=== PATIENT | female | born 1940 | race Caucasian/White ===

== ENCOUNTER 2016-11-27 09:27 | Inpatient (IN) | payer MEDICARE, BC ==
[2016-11-28] MEDS ORDERED: Zolpidem 5 MG Tab GTUBE PRN (15:07)
[2016-11-28] MEDS: Albuterol/Ipratropium 3.0-0.5 MG/3 ML Neb Soln NEB SCH ×2 (15:37→21:02)
[2016-11-28] MEDS: Acetaminophen 325 MG Tab GTUBE PRN (17:10)
[2016-11-28] MEDS: Insulin Aspart 100 Units/ML 3 ML Pen SUBCUT SCH ×2 (17:21→21:20)
--- NOTE | 2016-11-28 18:06 | PCM.HP ---
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 She had it resected and had a trach placed in the nose removed and a closed up. He then was readmitted for pneumonia and was put on a ventilator for respiratory failure and the trach was placed back in. She had many secretions and was suctioned and got off the ventilator. She was in [place] before being sent here. While she was in the hospital she had hyponatremia and anemia that were stable. She had delirium history with Pablo Wilson Depakote. She had a swallowing video study that she failed therefore I started tube feedings. The hospitalist also told me that she is using hydrocodone twice a day for some neck pain around incision for trach but she has no infection. She also is very sensitive to insulin. She has no concerns today other than she would like some Benadryl for her G-tube site and some Tylenol when necessary for pain. She has history of smoking but has not smoked for 5 weeks and has a patch on currently. - Related Data Allergies/Adverse Reactions: Allergies Allergy/AdvReac Type Severity Reaction Status Date / Time No Known Allergies Allergy Verified 01/19/16 21:34 Home Medications: Home Meds Zolpidem [Ambien] 5 mg GTUBE BEDTIME PRN 03/12/14 [History] Acetaminophen [Tylenol] 650 mg GTUBE Q6H PRN 11/28/16 [History] Albuterol/Ipratropium [DuoNeb 3.0-0.5 MG/3 ML] 3 ml IH QID 11/28/16 [History] Aspirin 81 mg GTUBE DAILY 11/28/16 [History] Budesonide [Pulmicort] 0.5 mg IH BID 11/28/16 [History] Bumetanide 0.5 mg GTUBE DAILY 11/28/16 [History] Chlorhexidine Gluconate 0.12% [Peridex 0.12% Rinse] 15 ml PO BID 11/28/16 [ History] Cholecalciferol (Vitamin D3) [Vitamin D3] 1,000 unit GTUBE DAILY 11/28/16 [ History] Citalopram [Citalopram HBr] 20 mg GTUBE BEDTIME 11/28/16 [History] ClonazePAM [KlonoPIN] 0.25 mg GTUBE BID 11/28/16 [History] Famotidine [Pepcid] 20 mg GTUBE BID 11/28/16 [History] Hydrocodone/Acetaminophen [Alb[place] 5-325] 1 tab GTUBE BID PRN 11/28/16 [History] Insulin Aspart [NovoLOG] 1 - 5 units SUBCUT QIDACANDBED 11/28/16 [History] Insulin Glarg,Human.Rec.Analog [Lantus Solostar] 6 unit SUBCUT DAILY 11/28/16 [ History] Melatonin 6 mg GTUBE BEDTIME 11/28/16 [History] Metoprolol Tartrate [Lopressor] 12.5 mg GTUBE BID 11/28/16 [History] Nicotine [Habitrol] 14 mg TD DAILY 11/28/16 [History] OLANZapine [Olanzapine] 2.5 mg GTUBE BID 11/28/16 [History] Potassium Chloride 10 meq GTUBE DAILY 11/28/16 [History] Probiotic Yogurt 30 ml GTUBE BID 11/28/16 [History] Protein Supplement [Protein Powder] 15 gm GTUBE DAILY 11/28/16 [History] Sennosides [Senna] 8.8 mg GTUBE BID 11/28/16 [History] Thiamine HCl 100 mg GTUBE BID 11/28/16 [History] Valproic Acid [Depakene Syrup] 250 mg GTUBE BEDTIME 11/28/16 [History] Past Medical History HEENT History: Reports: Epistaxis, Impaired Vision Cardiovascular History: Reports: Heart Murmur, High Cholesterol, Hypertension Respiratory History: Reports: COPD Gastrointestinal History: Reports: Other (See Below) Other Gastrointestinal History: 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 CLEANING CUSTODIAN History: Reports: Other (See Below) Other OB/BYN History: hystoractomy Musculoskeletal History: Reports: Arthritis, Back Pain, Chronic, Other (See Below) Other Musculoskeletal History: hip pain Psychiatric History: Reports: Other (See Below) Other Psychiatric History: insomnia Endocrine/Metabolic History: Reports: Diabetes, Type II Oncologic (Cancer) History: Reports: Esophageal, Other (See Below) (Palate cancer) Other Oncologic History: jaw bone cancer - Infectious Disease History Infectious Disease History: Reports: C-Difficile, Extended Spectrum Beta- Lactamase (ESBL), Influenza, Measles, Mumps, Shingles - Past Surgical History HEENT Surgical History: Reports: None Cardiovascular Surgical History: Reports: None GI Surgical History: Reports: Esophageal Dilatation Other GI Surgeries/Procedures: every 3 month patient has to stratch esophageal muscle Endocrine Surgical History: Reports: None Musculoskeletal Surgical History: Reports: None Oncologic Surgical History: Reports: None Social & Family History - Tobacco Use Smoking Status *Q: Former Smoker Years of Tobacco use: 50 Packs/Tins Daily: 1 Used Tobacco, but Quit: Yes Month Tobacco Last Used: september 2016 Second Hand Smoke Exposure: No - Caffeine Use Caffeine Use: Reports: Coffee - Alcohol Use Days Per Week of Alcohol Use: 7 Number of Drinks Per Day: 1 Total Drinks Per Week: 7 - Recreational Drug Use Recreational Drug Use: No H&P Review of Systems - Review of Systems: Review Of Systems: See Below General: Reports: No Symptoms HEENT: Reports: Other (See history of present illness) Pulmonary: Reports: No Symptoms Cardiovascular: Reports: No Symptoms Gastrointestinal: Reports: No Symptoms Genitourinary: Reports: No Symptoms Musculoskeletal: Reports: No Symptoms Skin: Reports: No Symptoms Psychiatric: Reports: Other (History of delirium in the hospital but she denies now) Neurological: Reports: No Symptoms Hematologic/Lymphatic: Reports: Anemia Immunologic: Reports: No Symptoms Exam - Exam Exam: See Below - Vital Signs Vital Signs: Last Vital Signs Temp Pulse 68 11/28/16 15:39 Resp BP Pulse Ox 94 L 11/28/16 15:39 Weight: 97 lb 14.4 oz - Exam General: Alert, Oriented, Cooperative HEENT: Hearing Intact, Normal Nasal Septum, Posterior Pharynx Clear, Other ( Upper plate. Not able to see out surgery due to upper plate.) Neck: Supple, Other (Tracheostomy in place) Lungs: Clear to Auscultation, Normal Respiratory Effort Cardiovascular: Regular Rate, Regular Rhythm, Systolic Murmur GI/Abdominal Exam: Normal Bowel Sounds, Soft, Non-Tender, No Organomegaly, No Distention Back Exam: Normal Inspection, Full Range of Motion, NT Extremities: Normal Inspection, Normal Range of Motion, Non-Tender, No Pedal Edema, Normal Capillary Refill Skin: Warm, Dry, Intact Neurological: Normal Speech, Normal Tone Neuro Extensive - Mental Status: Alert, Oriented x3, Normal Mood/Affect, Normal Cognition Neuro Extensive - Motor, Sensory, Reflexes: Normal Gait Psychiatric: Alert, Normal Affect, Normal Mood - Patient Data Lab Results Last 24 hrs: Laboratory Results - last 24 hr 11/28/16 Range/Units 17:20 POC Glucose 105 (80-116) mg/dL *Q Meaningful Use (ADM) - VTE *Q VTE Criteria *Q: - Stroke *Q Stroke Criteria *Q: - AMI *Q AMI Criteria *Q: - Problem List (1) Cancer of palate Status: Acute Current Visit: Yes (2) Tracheostomy in place SNOMED Code(s): 354406645 ICD Code: Z93.0 - TRACHEOSTOMY STATUS Status: Acute Current Visit: Yes (3) COPD (chronic obstructive pulmonary disease) SNOMED Code(s): 31372176 ICD Code: J44.9 - CHRONIC OBSTRUCTIVE PULMONARY DISEASE, UNSPECIFIED Status : Acute Current Visit: Yes (4) Diabetes 1.5, managed as type 2 SNOMED Code(s): 525911900 ICD Code: E10.9 - TYPE 1 DIABETES MELLITUS WITHOUT COMPLICATIONS Status: Acute Current Visit: Yes (5) Delirium SNOMED Code(s): 5619356 ICD Code: R41.0 - DISORIENTATION, UNSPECIFIED Status: Acute Current Visit : Yes (6) Anemia SNOMED Code(s): 650828036 ICD Code: D64.9 - ANEMIA, UNSPECIFIED Status: Acute Current Visit: Yes (7) Acute hyponatremia SNOMED Code(s): 0869941 ICD Code: E87.1 - HYPO-OSMOLALITY AND HYPONATREMIA Status: Acute Current Visit: Yes (8) Palliative care status SNOMED Code(s): 176642815 ICD Code: Z51.5 - ENCOUNTER FOR PALLIATIVE CARE Status: Acute Current Visit: Yes Problem List Initiated/Reviewed/Updated: Yes Orders Last 24hrs: Active Orders 24 hr Category Date Time Status Admission Status [Patient Status] [ADT] Routine ADT 11/28/16 11:00 Active Airway Tracheostomy Assessment [RC] Q6H Care 11/28/16 14:00 Active Blood Glucose Check, Bedside [RC] QIDACANDBED Care 11/28/16 14:12 Active Oxygen Therapy [RC] PRN Care 11/28/16 14:12 Active RT Aerosol Therapy [RC] ASDIRECTED Care 11/28/16 15:39 Active Tube Feeding [Enteral Feedings] [RC] 0830,1230,1630, Care 11/28/16 14:47 Active 1930 Up With Assistance [RC] ASDIRECTED Care 11/28/16 14:12 Active VTE/DVT Education [RC] Per Unit Routine Care 11/28/16 14:12 Active Vital Signs [RC] DAILY Care 11/28/16 14:12 Active Consult to Spiritual Care [CONS] Routine Cons 11/28/16 14:12 Active OT Evaluation and Treatment [CONS] Routine Cons 11/28/16 14:12 Active PT Evaluation and Treatment [CONS] Routine Cons 11/28/16 14:12 Active Respiratory Care Assess and Treatment [CONS] Routine Cons 11/28/16 14:12 Active LOOM REPAIRER Evaluation and Treatment [CONS] Routine Cons 11/28/16 14:31 Active Nothing per Oral Now Diet [DIET] Diet 11/28/16 Lunch Active Acetaminophen [Tylenol] Med 11/28/16 15:07 Active 650 mg GTUBE Q6H PRN Acetaminophen/HYDROcodone [Alb[place] 325-5 MG] Med 11/28/16 15:07 Active 1 tab GTUBE BID PRN Albuterol/Ipratropium [DuoNeb 3.0-0.5 MG/3 ML] Med 11/28/16 16:00 Active 3 ml NEB QIDRT Aspirin Med 11/29/16 09:00 Active 81 mg GTUBE DAILY Budesonide [Pulmicort] Med 11/28/16 21:00 Active 0.5 mg NEB BIDRT Bumetanide [Bumex] Med 11/29/16 09:00 Active 0.5 mg GTUBE DAILY Chlorhexidine Gluconate 0.12% [Peridex 0.12% Rinse] Med 11/28/16 21:00 Active 15 ml PO BID Cholecalciferol (Vitamin D3) [Vitamin D3] Med 11/29/16 09:00 Active 1,000 units GTUBE DAILY Citalopram [Celexa] Med 11/28/16 21:00 Active 20 mg GTUBE BEDTIME ClonazePAM [KlonoPIN] Med 11/28/16 21:00 Active 0.25 mg GTUBE BID Famotidine [Pepcid] Med 11/28/16 21:00 Active 20 mg GTUBE BID Insulin Aspart [NovoLOG] Med 11/28/16 17:30 Active See Protocol SUBCUT QIDACANDBED Insulin Detemir [Levemir] Med 11/29/16 09:00 Active 6 unit SUBCUT DAILY Melatonin Med 11/28/16 21:00 Active 6 mg GTUBE BEDTIME Metoprolol Tartrate [Lopressor] Med 11/28/16 21:00 Active 12.5 mg GTUBE BID Nicotine [Habitrol] Med 11/29/16 09:00 Active 14 mg TRDERM DAILY OLANZapine [ZyPREXA] Med 11/28/16 21:00 Active 2.5 mg GTUBE BID Potassium Chloride [Potassium Chloride Solution] Med 11/29/16 09:00 Active 10 meq GTUBE DAILY Sennosides [Senexon] Med 11/28/16 21:00 Active 5 ml GTUBE BID Thiamine [Vitamin B-1] Med 11/29/16 09:00 Active 100 mg GTUBE DAILY Valproic Acid [Depakene Syrup] Med 11/28/16 21:00 Active 250 mg GTUBE BEDTIME Zolpidem [Ambien] Med 11/28/16 15:07 Active 5 mg GTUBE BEDTIME PRN Resuscitation Status Routine Resus Stat 11/28/16 14:12 Ordered Medication Orders Acetaminophen (Tylenol) 650 mg GTUBE Q6H PRN PRN Reason: MILD PAIN Last Admin: 11/28/16 17:10 Dose: 650 mg Hydrocodone Bitart/Acetaminophen ([place] 325-5 Mg) 1 tab GTUBE BID PRN PRN Reason: MODERATE-SEVERE PAIN Albuterol/Ipratropium (Duoneb 3.0-0.5 Mg/3 Ml) 3 ml NEB QIDRT WONG Last Admin: 11/28/16 15:37 Dose: 3 ml Aspirin (Aspirin) 81 mg GTUBE DAILY WONG Budesonide (Pulmicort) 0.5 mg NEB BIDRT WONG Bumetanide (Bumex) 0.5 mg GTUBE DAILY WONG Chlorhexidine Gluconate (Peridex 0.12% Rinse) 15 ml PO BID WONG Cholecalciferol (Vitamin D3) 1,000 units GTUBE DAILY [facility] Citalopram Hydrobromide (Celexa) 20 mg GTUBE BEDTIME WONG Clonazepam (Klonopin) 0.25 mg GTUBE BID WONG Famotidine (Pepcid) 20 mg GTUBE BID [facility] Insulin Aspart (Novolog) 0 unit SUBCUT QIDACANDBED WONG PRN Reason: Protocol Last Admin: 11/28/16 17:21 Dose: Not Given Insulin Detemir (Levemir) 6 unit SUBCUT DAILY WONG Melatonin (Melatonin) 6 mg GTUBE BEDTIME WONG Metoprolol Tartrate (Lopressor) 12.5 mg GTUBE BID WONG Nicotine (Habitrol) 14 mg TRDERM DAILY WONG Olanzapine (Zyprexa) 2.5 mg GTUBE BID WONG Potassium Chloride (Potassium Chloride Solution) 10 meq GTUBE DAILY WONG Senna (Senexon) 5 ml GTUBE BID WONG Thiamine HCl (Vitamin B-1) 100 mg GTUBE DAILY WONG Stop: 12/05/16 09:01 Valproic Acid (Depakene Syrup) 250 mg GTUBE BEDTIME WONG Zolpidem Tartrate (Ambien) 5 mg GTUBE BEDTIME PRN PRN Reason: Insomnia Assessment/Plan Comment:: 1. Patient is admitted to swing bed for PT/OT and trach care and suctioning. 2. Tube feedings per RD 3. They want the trach left in for at least 4 weeks. 4. Zyprexa and Depakote should be weaned within a 1-2 months. 5. Video swallowing study in 1-2 weeks. Patient thinks she has a set up in [place]. 6. Twice weekly labs Chem-12 and CBC. 7. Continue the medications she was transferred with. 8. At Benadryl and Tylenol PM per patient request. 9. Nothing by mouth 10. Progress directives she does not want CPR chest compressions but does want to be intubated.
[2016-11-28] MEDS ORDERED: diphenhydrAMINE 12.5 MG/5 ML Liquid 120 ML Bottle JTUBE PRN (18:08)
[2016-11-28] MEDS: Valproic Acid 250 MG/5 ML Syrup ML (473 ML Bottle) GTUBE SCH (21:00)
[2016-11-28] MEDS ORDERED: Bacitracin Oint 28.35 GM Tube TOP SCH (21:00)
[2016-11-28] MEDS: Citalopram 20 MG Tab GTUBE SCH (21:00)
[2016-11-28] MEDS ORDERED: [UNRECOGNIZED DRUG - OTHER] GTUBE SCH (21:00)
[2016-11-28] MEDS: Metoprolol Tartrate 25 MG Tab GTUBE SCH (21:03)
[2016-11-28] MEDS: Melatonin 3 MG Tab GTUBE SCH (21:06)
[2016-11-28] MEDS: Famotidine 20 MG Tab GTUBE SCH (21:06)
[2016-11-28] MEDS: Chlorhexidine Gluconate 0.12% Oral Rinse 473 ML Bottle PO SCH (21:06)
[2016-11-28] MEDS: Budesonide 0.5 MG/2 ML Neb Susp NEB SCH (21:07)
[2016-11-28] MEDS: Sennosides 8.8 MG/5 ML ML Syrup 237 ML Bottle GTUBE SCH (21:07)
[2016-11-28] MEDS: OLANZapine 2.5 MG Tab GTUBE SCH (21:08)
[2016-11-28] MEDS: ClonazePAM 0.5 MG Tab GTUBE SCH (21:17)
[2016-11-29] MEDS: Acetaminophen 325 MG Tab GTUBE PRN ×2 (00:37→12:47)
[2016-11-29] MEDS: Albuterol/Ipratropium 3.0-0.5 MG/3 ML Neb Soln NEB SCH ×5 (07:07→21:03)
[2016-11-29] MEDS: Budesonide 0.5 MG/2 ML Neb Susp NEB SCH ×2 (07:07→21:15)
[2016-11-29] MEDS: Insulin Aspart 100 Units/ML 3 ML Pen SUBCUT SCH ×4 (07:32→21:00)
[2016-11-29] MEDS: Bumetanide 2 MG Tab GTUBE SCH (08:14)
[2016-11-29] MEDS: Thiamine 100 MG Tab GTUBE SCH (08:14)
[2016-11-29] MEDS: Cholecalciferol (Vitamin D3) 1,000 Unit Tab GTUBE SCH (08:14)
[2016-11-29] MEDS: Aspirin 81 MG Tab.Chew GTUBE SCH (08:14)
[2016-11-29] MEDS: OLANZapine 2.5 MG Tab GTUBE SCH ×2 (08:15→21:16)
[2016-11-29] MEDS: Potassium Chloride 10% 20 MEQ/15 ML Soln 15 ML UD Cup GTUBE SCH (08:15)
[2016-11-29] MEDS: Nicotine 14 MG/24 Hr Patch TRDERM SCH (08:16)
[2016-11-29] MEDS: Sennosides 8.8 MG/5 ML ML Syrup 237 ML Bottle GTUBE SCH ×2 (08:19→21:15)
[2016-11-29] MEDS: Metoprolol Tartrate 25 MG Tab GTUBE SCH ×2 (08:19→21:10)
[2016-11-29] MEDS: ClonazePAM 0.5 MG Tab GTUBE SCH ×2 (08:23→21:10)
[2016-11-29] MEDS: Insulin Detemir 100 Units/ML 3 ML Pen SUBCUT SCH (08:27)
[2016-11-29] MEDS: Chlorhexidine Gluconate 0.12% Oral Rinse 473 ML Bottle PO SCH ×2 (09:00→21:14)
[2016-11-29] MEDS ORDERED: PROTEIN SUPPLEMENT 15 GM GTUBE SCH (09:00)
[2016-11-29] MEDS: Famotidine 20 MG Tab GTUBE SCH ×2 (09:00→21:14)
[2016-11-29] MEDS: Saccharomyces Boulardii (Probiotic) 250 MG Cap GTUBE SCH ×2 (12:47→21:09)
[2016-11-29] MEDS: Acetaminophen/HYDROcodone 325-5 MG Tab GTUBE PRN (20:26)
[2016-11-29] MEDS: Citalopram 20 MG Tab GTUBE SCH (21:08)
[2016-11-29] MEDS: Valproic Acid 250 MG/5 ML Syrup ML (473 ML Bottle) GTUBE SCH (21:08)
[2016-11-29] MEDS: Melatonin 3 MG Tab GTUBE SCH (21:13)
[2016-11-30] MEDS: Budesonide 0.5 MG/2 ML Neb Susp NEB SCH ×2 (07:10→21:06)
[2016-11-30] MEDS: Albuterol/Ipratropium 3.0-0.5 MG/3 ML Neb Soln NEB SCH ×4 (07:10→21:03)
[2016-11-30] MEDS: Insulin Aspart 100 Units/ML 3 ML Pen SUBCUT SCH ×4 (08:17→21:15)
[2016-11-30] MEDS: Famotidine 20 MG Tab GTUBE SCH ×2 (08:45→21:22)
[2016-11-30] MEDS: Cholecalciferol (Vitamin D3) 1,000 Unit Tab GTUBE SCH (08:45)
[2016-11-30] MEDS: Saccharomyces Boulardii (Probiotic) 250 MG Cap GTUBE SCH ×2 (08:45→21:08)
[2016-11-30] MEDS: OLANZapine 2.5 MG Tab GTUBE SCH ×2 (08:45→21:35)
[2016-11-30] MEDS: Thiamine 100 MG Tab GTUBE SCH (08:45)
[2016-11-30] MEDS: Sennosides 8.8 MG/5 ML ML Syrup 237 ML Bottle GTUBE SCH ×2 (08:46→21:28)
[2016-11-30] MEDS: Potassium Chloride 10% 20 MEQ/15 ML Soln 15 ML UD Cup GTUBE SCH (08:46)
[2016-11-30] MEDS: ClonazePAM 0.5 MG Tab GTUBE SCH ×2 (08:46→21:39)
[2016-11-30] MEDS: Nicotine 14 MG/24 Hr Patch TRDERM SCH (08:47)
[2016-11-30] MEDS: Bumetanide 2 MG Tab GTUBE SCH (08:48)
[2016-11-30] MEDS: Aspirin 81 MG Tab.Chew GTUBE SCH (08:54)
[2016-11-30] MEDS: Insulin Detemir 100 Units/ML 3 ML Pen SUBCUT SCH (09:12)
[2016-11-30] MEDS: Chlorhexidine Gluconate 0.12% Oral Rinse 473 ML Bottle PO SCH ×2 (09:15→21:30)
[2016-11-30] MEDS: Metoprolol Tartrate 25 MG Tab GTUBE SCH ×2 (09:16→21:12)
[2016-11-30] MEDS: Acetaminophen/HYDROcodone 325-5 MG Tab GTUBE PRN ×2 (13:36→17:30)
[2016-11-30] MEDS: Citalopram 20 MG Tab GTUBE SCH (21:17)
[2016-11-30] MEDS: Valproic Acid 250 MG/5 ML Syrup ML (473 ML Bottle) GTUBE SCH (21:18)
[2016-11-30] MEDS: Melatonin 3 MG Tab GTUBE SCH (21:21)
[2016-11-30] MEDS: diphenhydrAMINE 12.5 MG/5 ML Liquid 120 ML Bottle JTUBE PRN (22:05)
[2016-12-01] MEDS: Acetaminophen 325 MG Tab GTUBE PRN (03:42)
[2016-12-01] MEDS: Budesonide 0.5 MG/2 ML Neb Susp NEB SCH ×2 (07:08→20:18)
[2016-12-01] MEDS: Albuterol/Ipratropium 3.0-0.5 MG/3 ML Neb Soln NEB SCH ×4 (07:08→20:10)
[2016-12-01] MEDS: Insulin Aspart 100 Units/ML 3 ML Pen SUBCUT SCH ×5 (07:18→22:35)
[2016-12-01] MEDS: Saccharomyces Boulardii (Probiotic) 250 MG Cap GTUBE SCH ×2 (08:37→20:14)
[2016-12-01] MEDS: Nicotine 14 MG/24 Hr Patch TRDERM SCH (08:37)
[2016-12-01] MEDS: Potassium Chloride 10% 20 MEQ/15 ML Soln 15 ML UD Cup GTUBE SCH (08:37)
[2016-12-01] MEDS: Sennosides 8.8 MG/5 ML ML Syrup 237 ML Bottle GTUBE SCH ×2 (08:37→20:18)
[2016-12-01] MEDS: Metoprolol Tartrate 25 MG Tab GTUBE SCH ×2 (08:37→20:14)
[2016-12-01] MEDS: Bumetanide 2 MG Tab GTUBE SCH (08:38)
[2016-12-01] MEDS: OLANZapine 2.5 MG Tab GTUBE SCH ×2 (08:38→20:18)
[2016-12-01] MEDS: Aspirin 81 MG Tab.Chew GTUBE SCH (08:38)
[2016-12-01] MEDS: Cholecalciferol (Vitamin D3) 1,000 Unit Tab GTUBE SCH (08:38)
[2016-12-01] MEDS: Thiamine 100 MG Tab GTUBE SCH (08:38)
[2016-12-01] MEDS: ClonazePAM 0.5 MG Tab GTUBE SCH ×2 (08:38→20:25)
[2016-12-01] MEDS: Famotidine 20 MG Tab GTUBE SCH ×2 (08:39→20:17)
[2016-12-01] MEDS ORDERED: Lidocaine 2% 5 ML SDV INJECT ONE (09:00)
[2016-12-01] MEDS ORDERED: methylPREDNISolone Acetate 80 MG/ML SDV IM ONE (09:00)
[2016-12-01] MEDS: Chlorhexidine Gluconate 0.12% Oral Rinse 473 ML Bottle PO SCH ×2 (09:00→20:25)
[2016-12-01] MEDS: Insulin Detemir 100 Units/ML 3 ML Pen SUBCUT SCH (09:32)
--- NOTE | 2016-12-01 09:44 | PCM.PRNOTE ---
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 She requested a corticosteroid injection that she used to get from orthopedics. I looked up the chart and found to Dr. Colbert had injected the trochanteric bursa area in April. Patient accepted the risks and benefits of this procedure. I prepped the left buttock and to continue bursa identify the most tender area injected 80 mg of Depo-Medrol and 5 mL of 2% lidocaine. There are no complications. She tolerated the procedure fairly well.
[2016-12-01] MEDS: Acetaminophen/HYDROcodone 325-5 MG Tab GTUBE PRN ×2 (12:25→18:06)
[2016-12-01] MEDS: Valproic Acid 250 MG/5 ML Syrup ML (473 ML Bottle) GTUBE SCH (20:13)
[2016-12-01] MEDS: Citalopram 20 MG Tab GTUBE SCH (20:14)
[2016-12-01] MEDS: Melatonin 3 MG Tab GTUBE SCH (20:15)
[2016-12-01] MEDS: diphenhydrAMINE 12.5 MG/5 ML Liquid 120 ML Bottle JTUBE PRN (20:22)
[2016-12-02] MEDS: Acetaminophen 325 MG Tab GTUBE PRN ×3 (01:37→20:47)
[2016-12-02] MEDS: Acetaminophen/HYDROcodone 325-5 MG Tab GTUBE PRN ×2 (05:32→17:43)
[2016-12-02] MEDS: Albuterol/Ipratropium 3.0-0.5 MG/3 ML Neb Soln NEB SCH ×4 (07:06→20:33)
[2016-12-02] MEDS: Budesonide 0.5 MG/2 ML Neb Susp NEB SCH ×2 (07:06→20:44)
[2016-12-02] MEDS: Insulin Aspart 100 Units/ML 3 ML Pen SUBCUT SCH ×4 (07:59→20:42)
[2016-12-02] MEDS: Famotidine 20 MG Tab GTUBE SCH ×2 (08:00→20:43)
[2016-12-02] MEDS: Cholecalciferol (Vitamin D3) 1,000 Unit Tab GTUBE SCH (08:00)
[2016-12-02] MEDS: ClonazePAM 0.5 MG Tab GTUBE SCH ×2 (08:00→20:41)
[2016-12-02] MEDS: Thiamine 100 MG Tab GTUBE SCH (08:00)
[2016-12-02] MEDS: OLANZapine 2.5 MG Tab GTUBE SCH ×2 (08:01→20:46)
[2016-12-02] MEDS: Saccharomyces Boulardii (Probiotic) 250 MG Cap GTUBE SCH ×2 (08:02→20:33)
[2016-12-02] MEDS: Potassium Chloride 10% 20 MEQ/15 ML Soln 15 ML UD Cup GTUBE SCH (08:02)
[2016-12-02] MEDS: Sennosides 8.8 MG/5 ML ML Syrup 237 ML Bottle GTUBE SCH ×2 (08:02→20:46)
[2016-12-02] MEDS: Aspirin 81 MG Tab.Chew GTUBE SCH (08:02)
[2016-12-02] MEDS: Bumetanide 2 MG Tab GTUBE SCH (08:03)
[2016-12-02] MEDS: Nicotine 14 MG/24 Hr Patch TRDERM SCH (08:04)
[2016-12-02] MEDS: Chlorhexidine Gluconate 0.12% Oral Rinse 473 ML Bottle PO SCH ×2 (08:05→20:44)
[2016-12-02] MEDS: Insulin Detemir 100 Units/ML 3 ML Pen SUBCUT SCH (08:20)
[2016-12-02] MEDS: Metoprolol Tartrate 25 MG Tab GTUBE SCH ×2 (08:21→20:33)
[2016-12-02] MEDS: Lidocaine 5% 700 MG Patch TOP SCH (14:24)
[2016-12-02] MEDS: Citalopram 20 MG Tab GTUBE SCH (20:32)
[2016-12-02] MEDS: Valproic Acid 250 MG/5 ML Syrup ML (473 ML Bottle) GTUBE SCH (20:32)
[2016-12-02] MEDS: Melatonin 3 MG Tab GTUBE SCH (20:42)
[2016-12-02] MEDS: Remove Patch*LIDODERM TRDERM SCH (20:45)
[2016-12-02] MEDS: diphenhydrAMINE 12.5 MG/5 ML Liquid 120 ML Bottle JTUBE PRN (21:55)
[2016-12-03] MEDS: Acetaminophen 325 MG Tab GTUBE PRN ×3 (06:27→19:44)
[2016-12-03] MEDS: Insulin Aspart 100 Units/ML 3 ML Pen SUBCUT SCH ×4 (07:29→22:00)
[2016-12-03] MEDS: Budesonide 0.5 MG/2 ML Neb Susp NEB SCH ×2 (07:31→22:06)
[2016-12-03] MEDS: Albuterol/Ipratropium 3.0-0.5 MG/3 ML Neb Soln NEB SCH ×4 (07:31→21:43)
[2016-12-03] MEDS: Bumetanide 2 MG Tab GTUBE SCH (08:40)
[2016-12-03] MEDS: Aspirin 81 MG Tab.Chew GTUBE SCH (08:40)
[2016-12-03] MEDS: Saccharomyces Boulardii (Probiotic) 250 MG Cap GTUBE SCH ×2 (08:42→14:51)
[2016-12-03] MEDS: Nicotine 14 MG/24 Hr Patch TRDERM SCH (08:42)
[2016-12-03] MEDS: Insulin Detemir 100 Units/ML 3 ML Pen SUBCUT SCH (08:45)
[2016-12-03] MEDS: Metoprolol Tartrate 25 MG Tab GTUBE SCH ×2 (08:46→22:07)
[2016-12-03] MEDS: Famotidine 20 MG Tab GTUBE SCH ×2 (08:48→22:06)
[2016-12-03] MEDS: Potassium Chloride 10% 20 MEQ/15 ML Soln 15 ML UD Cup GTUBE SCH (08:48)
[2016-12-03] MEDS: Sennosides 8.8 MG/5 ML ML Syrup 237 ML Bottle GTUBE SCH ×2 (08:49→22:06)
[2016-12-03] MEDS: Thiamine 100 MG Tab GTUBE SCH (08:49)
[2016-12-03] MEDS: OLANZapine 2.5 MG Tab GTUBE SCH ×2 (08:50→22:04)
[2016-12-03] MEDS: Cholecalciferol (Vitamin D3) 1,000 Unit Tab GTUBE SCH (08:50)
[2016-12-03] MEDS: Chlorhexidine Gluconate 0.12% Oral Rinse 473 ML Bottle PO SCH ×2 (09:07→22:16)
[2016-12-03] MEDS: ClonazePAM 0.5 MG Tab GTUBE SCH ×2 (09:10→22:14)
[2016-12-03] MEDS: Lidocaine 5% 700 MG Patch TOP SCH (09:11)
[2016-12-03] MEDS: Acetaminophen/HYDROcodone 325-5 MG Tab GTUBE PRN ×2 (10:00→22:13)
[2016-12-03] MEDS ORDERED: diphenhydrAMINE 12.5 MG/5 ML Liquid ML (473 ML Bottle) JTUBE PRN (14:54)
[2016-12-03] MEDS: Valproic Acid 250 MG/5 ML Syrup ML (473 ML Bottle) GTUBE SCH (22:04)
[2016-12-03] MEDS: Melatonin 3 MG Tab GTUBE SCH (22:04)
[2016-12-03] MEDS: Citalopram 20 MG Tab GTUBE SCH (22:06)
[2016-12-03] MEDS: Remove Patch*LIDODERM TRDERM SCH (22:28)
[2016-12-04] MEDS: Budesonide 0.5 MG/2 ML Neb Susp NEB SCH ×2 (07:06→21:37)
[2016-12-04] MEDS: Albuterol/Ipratropium 3.0-0.5 MG/3 ML Neb Soln NEB SCH ×4 (07:06→20:05)
[2016-12-04] MEDS: Insulin Aspart 100 Units/ML 3 ML Pen SUBCUT SCH (07:41)
[2016-12-04] MEDS: Aspirin 81 MG Tab.Chew GTUBE SCH (09:21)
[2016-12-04] MEDS: Bumetanide 2 MG Tab GTUBE SCH (09:21)
[2016-12-04] MEDS: Insulin Detemir 100 Units/ML 3 ML Pen SUBCUT SCH (09:22)
[2016-12-04] MEDS: Nicotine 14 MG/24 Hr Patch TRDERM SCH (09:22)
[2016-12-04] MEDS: Lidocaine 5% 700 MG Patch TOP SCH (09:23)
[2016-12-04] MEDS: Metoprolol Tartrate 25 MG Tab GTUBE SCH ×2 (09:24→21:37)
[2016-12-04] MEDS: Famotidine 20 MG Tab GTUBE SCH ×2 (09:25→21:38)
[2016-12-04] MEDS: Potassium Chloride 10% 20 MEQ/15 ML Soln 15 ML UD Cup GTUBE SCH (09:26)
[2016-12-04] MEDS: Thiamine 100 MG Tab GTUBE SCH (09:26)
[2016-12-04] MEDS: Sennosides 8.8 MG/5 ML ML Syrup 237 ML Bottle GTUBE SCH ×2 (09:26→21:42)
[2016-12-04] MEDS: Cholecalciferol (Vitamin D3) 1,000 Unit Tab GTUBE SCH (09:27)
[2016-12-04] MEDS: OLANZapine 2.5 MG Tab GTUBE SCH ×2 (09:28→21:48)
[2016-12-04] MEDS: ClonazePAM 0.5 MG Tab GTUBE SCH ×2 (09:33→21:41)
[2016-12-04] MEDS: Chlorhexidine Gluconate 0.12% Oral Rinse 473 ML Bottle PO SCH ×2 (09:49→21:46)
[2016-12-04] MEDS: Saccharomyces Boulardii (Probiotic) 250 MG Cap GTUBE SCH ×2 (11:20→14:59)
[2016-12-04] MEDS: Acetaminophen/HYDROcodone 325-5 MG Tab GTUBE PRN ×2 (12:05→21:36)
--- NOTE | 2016-12-04 12:40 | PCM.SN ---
- Free Text/Narrative Note: Subjective-Dr. Mistry passive I will see the swing bed patient due to having a nosebleed. Since I'm over the hospital he wasn't. I agreed to do it. She states she's had a left nosebleed for about an hour. She is currently putting pressure on it and it's getting a little bit better. It's on the left side. [id number] active bleeding left side. Not able to see a site. Appears to be anterior. Gianna-left anterior nosebleed Plan-I took 2 2 x 2's and rolled him up and put copious amounts of Vaseline around them. Then I placed up in her nose. And then placed nose pincher on for pressure. I will leave it on for an hour and see how she's doing. Hold her aspirin for 5 days.
[2016-12-04] MEDS: Acetaminophen 325 MG Tab GTUBE PRN ×2 (14:11→20:04)
[2016-12-04] MEDS: Valproic Acid 250 MG/5 ML Syrup ML (473 ML Bottle) GTUBE SCH (21:37)
[2016-12-04] MEDS: Citalopram 20 MG Tab GTUBE SCH (21:37)
[2016-12-04] MEDS: Melatonin 3 MG Tab GTUBE SCH (21:38)
[2016-12-04] MEDS: Remove Patch*LIDODERM TRDERM SCH (21:47)
[2016-12-05] MEDS: Acetaminophen 325 MG Tab GTUBE PRN ×2 (05:18→10:29)
[2016-12-05] MEDS: Budesonide 0.5 MG/2 ML Neb Susp NEB SCH (07:05)
[2016-12-05] MEDS: Albuterol/Ipratropium 3.0-0.5 MG/3 ML Neb Soln NEB SCH ×2 (07:05→10:48)
[2016-12-05] MEDS: Nicotine 14 MG/24 Hr Patch TRDERM SCH (08:41)
[2016-12-05] MEDS: Bumetanide 2 MG Tab GTUBE SCH (08:41)
[2016-12-05] MEDS: Lidocaine 5% 700 MG Patch TOP SCH (08:43)
[2016-12-05] MEDS: Metoprolol Tartrate 25 MG Tab GTUBE SCH (08:47)
[2016-12-05] MEDS: ClonazePAM 0.5 MG Tab GTUBE SCH (08:47)
[2016-12-05] MEDS: Famotidine 20 MG Tab GTUBE SCH (08:48)
[2016-12-05] MEDS: Potassium Chloride 10% 20 MEQ/15 ML Soln 15 ML UD Cup GTUBE SCH (08:48)
[2016-12-05] MEDS: Chlorhexidine Gluconate 0.12% Oral Rinse 473 ML Bottle PO SCH (08:48)
[2016-12-05] MEDS: Cholecalciferol (Vitamin D3) 1,000 Unit Tab GTUBE SCH (08:49)
[2016-12-05] MEDS: Thiamine 100 MG Tab GTUBE SCH (08:49)
[2016-12-05] MEDS: Sennosides 8.8 MG/5 ML ML Syrup 237 ML Bottle GTUBE SCH (08:49)
[2016-12-05 08:50] VITALS: BP 153/79
[2016-12-05] MEDS: OLANZapine 2.5 MG Tab GTUBE SCH (08:50)
[2016-12-05] MEDS: Saccharomyces Boulardii (Probiotic) 250 MG Cap GTUBE SCH (10:32)
[2016-12-05] MEDS: Acetaminophen/HYDROcodone 325-5 MG Tab GTUBE PRN (12:37)
--- NOTE | 2016-12-06 02:22 | DISCH ---
DISCHARGE DATE: 12/05/2016 REASON FOR VISIT: For admission. DISCHARGE DIAGNOSES: 1. History of palate cancer. 2. History of hypoxic respiratory failure. 3. Healthcare-associated pneumonia. 4. Chronic obstructive pulmonary disease without exacerbation. 5. Diastolic congestive heart failure exacerbation. 6. Dysphagia. 7. Clostridium difficile diarrhea. 8. Anxiety, depression. 9. Diabetes. 10.Hypertension. 11.Anemia/mild hyponatremia. 12.Status post trach and PEG placement. 13.Tube feeding patient. PROCEDURES DURING THIS ADMISSION: 1. Trochanteric bursitis, glucocorticoid injection. 2. Nasal package due to epistaxis. CONSULTATIONS: PT and OT. BRIEF HISTORY AND HOSPITAL COURSE: This is a 76-year-old female with a complicated and complex medical history, admitted to [facility] last 3 months on and off for respiratory failure, pneumonia, intubation, and subsequent tracheostomy. She also had excessive respiratory secretions that required frequent suctioning and due to palate cancer and excision she needed a PEG tube as well for feeding. She has chronic medical problems as mentioned above in the discharge diagnosis and she came to us for physical strengthening, trach management, and tube feeding through the PEG tube. She did well by physical and occupational therapy. Nutrition was consulted as well and was on board. The patient was deemed stable enough for discharge to home with [facility] needing speech, respiratory, physical, and occupational therapy as well as medication management. During the hospital stay, she had complained of pain in the left hip for which Dr. Colbert had periodically done a glucocorticoid injection, I did this on Saturday. She also had bleeding from the nose and aspirin was stopped, and she was packed for an hour on the left nostril by Dr. Tafoya (I appreciate his help). DISCHARGE MEDICATIONS: Aspirin was held for 5 days due to the bleeding. She was discharged home on: 1. Acetaminophen p.r.n. 2. DuoNeb q.i.d. p.r.n. 3. Pulmicort b.i.d. by [facility]. 4. Bumex 0.5 mg daily. 5. Chlorhexidine gluconate. 6. Cholecalciferol 1000 units daily. 7. Celexa 20 mg a day. 8. Clonazepam 0.25 mg b.i.d. 9. Benadryl 25 mg q.6 hours p.r.n. 10.Pepcid 20 mg b.i.d. 11.Melatonin 6 mg at bedtime. 12.Lidocaine 700 mg topically daily. 13.Lopressor (instead of metoprolol) 12.5 mg b.i.d. 14.Olanzapine 2.5 mg daily. 15.Potassium chloride 10 mEq daily. 16.Saccharomyces 250 mg b.i.d., 1 patch. 17.Lidocaine 5% daily. 18.Sennosides 5 mL b.i.d. 19.Depakote 250 mg at bedtime. 20.Ambien 5 mg at bedtime. DISPOSITION: To home. FOLLOWUP: She has upcoming appointments at the on 12/11 and 01/09. She has an appointment for a PET scan next week and rfid manager next week as well. Please note that I spent more than 35 minutes in the discharge of the patient. /[id number] JANNY/REINALDO RAMIREZ
[2016-12-10] MEDS ORDERED: Aspirin 81 MG Tab.Chew GTUBE SCH (09:00)
== END 2016-12-05 13:05 | disposition home health service (06) | DRG 948 ==
LOC: FB.MS 11-28 13:41
PROVIDERS: ADMIT Family Medicine; ATTEND Family Medicine
PROC: 3E0U33Z Introduction of Anti-inflammatory into Joints, Percutaneous Approach (ICD-10-PCS; principal; 2016-12-01)
PROC: 3E0U3BZ Introduction of Anesthetic Agent into Joints, Percutaneous Approach (ICD-10-PCS; 2016-12-01)
PROC: 2Y41X5Z Packing of Nasal Region using Packing Material (ICD-10-PCS; 2016-12-04)
DX: R53.1 Weakness (principal); I50.30 Unspecified diastolic (congestive) heart failure; Z85.89 Personal history of malignant neoplasm of other organs and systems; E11.9 Type 2 diabetes mellitus without complications; J44.9 Chronic obstructive pulmonary disease, unspecified; I10 Essential (primary) hypertension; Z79.4 Long term (current) use of insulin; Z66 Do not resuscitate; Z87.891 Personal history of nicotine dependence; Z93.1 Gastrostomy status; M54.9 Dorsalgia, unspecified; G89.29 Other chronic pain; M70.62 Trochanteric bursitis, left hip; R04.0 Epistaxis; H54.7 Unspecified visual loss; Z79.82 Long term (current) use of aspirin; R13.10 Dysphagia, unspecified; F41.9 Anxiety disorder, unspecified; F32.9 Major depressive disorder, single episode, unspecified; Z93.0 Tracheostomy status; Z87.01 Personal history of pneumonia (recurrent)
CPT/HCPCS: 36415; 80048; 82962; 85025; 92526-GN; 92610-GN; 94150; 94640; 94640-76; 94664; 97161-GP; 97165-GO; A9270-GY; J1040; J7620; J7626

== ENCOUNTER 2016-12-08 13:39 | Emergency (ER) | payer MEDICARE, BC ==
[2016-12-08 13:48] VITALS: BP 133/55
[2016-12-08] MEDS ORDERED: HYDROmorphone 2 MG/ML SDV IM ONE (14:14)
[2016-12-08] MEDS ORDERED: Ondansetron 4 MG Tab.DIS PO ONE (14:15)
--- NOTE | 2016-12-10 12:07 | CR ---
INDICATION: Trauma left wrist, fell on desk. Question fracture rib with left- side pain. BILATERAL RIBS WITH CHEST: CHEST: PA view of the chest was obtained upright. A tracheostomy tube is noted in place, which is a new finding compared with a chest CT of 03/05/2014, which is the only comparison of the chest. Infiltration is noted at the right, and to a lesser extent left lung base; pneumonia is suspected, although contusion could be present. This should be correlated clinically. The possibility of a contusion at the left lung base of small size is difficult to exclude. However, the amount of infiltrate is minimal compared with the right, which extends into the infrahilar area on the right. The heart is enlarged. The aorta is tortuous and calcified. Dextroconvex scoliosis is noted at the thoracolumbar spine of mild degree. Multiple rib fractures posteriorly and posterolaterally on the left. These appear healed. Apparently, they were not present on the previous CT of 2014. On the chest x-ray, no definite acute fracture site is seen. A degree of demineralization may be present, however, which could be on the basis of osteoporosis and should be correlated clinically. IMPRESSION: 1. Bibasilar infiltration, much more prominent on the right than left in the middle lobe and possibly lower lobe on the right and lower lobe on the left. These findings may be partly on the basis of fibrosis, however, pneumonia, especially on the right, cannot be excluded. Other etiology such as contusion would also be a consideration. 2. ASHD with cardiomegaly. 3. Tracheostomy tube in place. 4. Possible osteoporosis with dextroconvex scoliosis thoracolumbar spine. BILATERAL RIBS: Four views of the ribs were obtained bilaterally. Demineralization is suggested, compatible with osteoporosis. A fracture through the distal shaft - metaphysis of the clavicle is noted, which is new compared with 2015. Its age is indeterminate, but could be acute. There are healed rib fractures at the 5th, 6th, 7th, and possibly 8th ribs laterally/posterolaterally. These fractures appear to be healed. However, at the 10th and 11th ribs posteriorly, there is difficulty in excluding fracture sites. This appearance may be secondary to overlying chondral calcification, however. No definite acute fracture site was identified in the ribs on the left. On the right, no displaced fracture sites were identified. IMPRESSION: 1. Possible acute fracture of the distal shaft of the clavicle. 2. Old rib fractures on the left. 3. No definite acute rib fractures. MTDD
--- NOTE | 2016-12-10 16:37 | ER ---
DATE SEEN: 12/08/2016 HISTORY OF PRESENT ILLNESS: Jh lives with her . 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 She has a PEG tube because she cannot swallow and has chronic cough. She has little congestion intermittently and has not changed. No recent fever. She fell 3 days ago and her left hip has mild tenderness. She has slept more and came in today because of left chest pain from chest trauma and chest discomfort. She denies any new shortness of breath. No fever. No increased dyspnea. No difficulties of sleeping at night. No PND. DIAGNOSES: Status post polypectomy, hypertensive heart disease, cancer of the palate, tracheostomy, chronic obstructive pulmonary disease, diabetes, delirium, palliative care. ALLERGIES: Bupropion, morphine, Bactrim. CURRENT MEDICINES: Acetaminophen, famotidine, clonazepam, citalopram, Peridex rinse for mouth, budesonide, DuoNeb, potassium chloride, olanzapine, nicotine, metoprolol tartrate, melatonin, Lidoderm, Ambien, valproic acid syrup, thiamine, senna. The patient complains of left ear discomfort. She has ear plug on which is quite prominent. PHYSICAL EXAMINATION: VITAL SIGNS: Blood pressure 133/55, heart rate 95 and regular, respirations 18, 92% saturation, 43.99 kilos with a BMI of 16.6 kg/m2. GENERAL: This very thin non-cachectic, but asthenic woman with minimal muscle mass complains of chest wall discomfort. She has audible moist rhonchi that are heard when she breathes and/or has a congested cough. Pharynx has no erythema. Has moderate dry mucosa and thickened mucus on the top of the tongue. NECK: No bruits in neck. No masses. Mild cervical adenopathy. LUNGS: Clear superiorly but the lower base has rhonchi. HEART: S1, S2. No murmur. ABDOMEN: Soft. No guarding. No abdominal discomfort. Left chest wall ribs 7, 8, 9 anterior axillary line and anterior midclavicular line are moderately tender to palpation. No crepitus. No step off. X-ray of the ribs and chest x-ray did not demonstrate a fracture. She has mild osteopenia of the bones. There are a few rales scattered and also chronic obstructive lung disease changes with fibrosis in the lungs without airspace opacity. ASSESSMENT: Left chest wall contusion with left traumatic chest wall costochondritis. Treat with Tylenol and ibuprofen, and for breakthrough pain, use Tylenol liquid with codeine 120/12.5 mg by mouth 1-2 teaspoons. Other diagnoses: Chronic obstructive lung disease, depression, gastroesophageal reflux disease, palate cancer, resection, tracheostomy, diabetes, anemia. PLAN: 1. The patient to follow up with doctor in a week if she has increasing shortness of breath. 2. She is to use incentive spirometer up to 10 times a day. 3. I have advised her that the rib belt is not the optimal therapeutic choice, but if she has no other alternatives, she can use it. I prefer her not to use it. 4. She will have pain on and off for a long time because the frequency of rib movement is great and the probability if she has a fracture, this healing will be over a long period of time. /[id number] ALPESH/REINALDO
== END 2016-12-08 16:00 | disposition home or self-care (01) ==
LOC: FB.ED 13:39
DX: S20.212A Contusion of left front wall of thorax, initial encounter (principal); M94.0 Chondrocostal junction syndrome [Tietze]; C05.9 Malignant neoplasm of palate, unspecified; I11.9 Hypertensive heart disease without heart failure; J44.9 Chronic obstructive pulmonary disease, unspecified; F32.9 Major depressive disorder, single episode, unspecified; K21.9 Gastro-esophageal reflux disease without esophagitis; E11.9 Type 2 diabetes mellitus without complications; D64.9 Anemia, unspecified; Z98.890 Other specified postprocedural states; Z88.5 Allergy status to narcotic agent; Z88.8 Allergy status to other drugs, medicaments and biological substances; Z93.0 Tracheostomy status; X58.XXXA Exposure to other specified factors, initial encounter
CPT/HCPCS: 71111; 99284; A9270; J1170; 96372; 99283

== ENCOUNTER 2016-12-09 11:27 | Emergency (ER) | payer MEDICARE, BC ==
[2016-12-09] MEDS ORDERED: traMADol 50 MG Tab PO ONE (12:36)
[2016-12-09] MEDS ORDERED: HYDROmorphone 2 MG/ML SDV IM ONE (13:38)
[2016-12-09] MEDS ORDERED: Ondansetron 4 MG Tab.DIS PO STA (13:39)
[2016-12-09] MEDS ORDERED: Albuterol/Ipratropium 3.0-0.5 MG/3 ML Neb Soln NEB ONE (15:06)
[2016-12-09 15:16] VITALS: BP 97/54
--- NOTE | 2016-12-10 12:12 | CR ---
INDICATION: Rales and rhonchi, question aspiration pneumonia. CHEST: PA and lateral views of the chest 12/09/2016, compared with 12/08/2016 PA view, were obtained and again revealed infiltration at the lung bases with increasing severity bilaterally, but especially more prominently on the right than left. Findings are most compatible with pneumonia, although contusion could also be present. The heart is again noted to be enlarged. Findings compatible with COPD and possibly osteoporosis are noted. The aorta is tortuous and calcified. IMPRESSION: 1. Increasing pleuroparenchymal change at the lung bases, especially on the right, compatible with pneumonia and pleuritis, although contusion could also be present. 2. ASHD with cardiomegaly. 3. Osteoporosis, dextroconvex scoliosis thoracolumbar spine. 4. Probable COPD. 5. Tracheostomy tube in place. MTDD
--- NOTE | 2016-12-11 15:14 | ER ---
DATE SEEN: 12/09/2016 HISTORY OF PRESENT ILLNESS: This is a 76-year-old woman who has recently had hard palate surgery with plastic surgical replacement of soft palate, was seen yesterday for left chest wall discomfort. She was dismissed on tramadol. She has pain and has come back. She has other diseases, chronic obstructive lung disease, depression, hypertension, smoked up until 08/2016, and a mitral valve murmur with systolic murmur that spread to the left axilla. She is also cachectic/cachexia/malnutrition. She has a feeding tube because she cannot swallow after the surgery of the soft palate. PAST MEDICAL HISTORY: 1. Tracheostomy. 2. Diabetes. 3. Hypertensive heart disease. 4. Status post polypectomy. MEDICATIONS: Current medicines are, 1. Budesonide-Pulmicort b.i.d. inhaler 0.5. 2. Albuterol DuoNeb q.i.d. 3. Acetaminophen-Tylenol. 4. Metoprolol-Lopressor 12.5 mg b.i.d. 5. Melatonin 6 mg at bedtime. 6. Lidoderm patch p.r.n. 7. Hydrocodone p.r.n. 8. Pepcid daily, feeding tube. 9. Clonazepam 0.25 mg p.r.n. 10.Citalopram 20 mg daily. 11.Vitamin D. 12.Chlorhexidine gluconate-Peridex oral rinse. 13.Bumetanide 0.5 mg daily. 14.Probiotic. 15.Potassium chloride. 16.Olanzapine 2.5 mg b.i.d. 17.Nicotine. 18.Zolpidem 5 mg at bedtime. 19.Valproic acid 250 mg daily. 20.Thiamine hydrochloride. 21.Senna p.r.n. 22.Protein supplement. 23.Tramadol. 24.Levofloxacin (latter was just added today). ALLERGIES: Bupropion, morphine, sulfamethoxazole, and trimethoprim. REVIEW OF SYSTEMS: CONSTITUTIONAL: Patient cannot give history, but daughter is here. She notes she is weak. She has not fallen. HEENT: Denies headaches nor is she lightheaded. CARDIOVASCULAR: She denies irregular heartbeat or palpitations or syncope, but she has chest discomfort mostly chest wall pain, left side ribs 10 and 11, sub-costochondritis. GASTROINTESTINAL: Denies gastrointestinal complaints of nausea, vomiting, or diarrhea. She has a PEG tube. She has been getting extra fluid, per recommendations yesterday, she had 250 mL of water yesterday. EXTREMITIES: Without pain or discomfort, but she has pain in her hips. She has had previous hip replacement and has had chronic increasing hip pain secondary to the breakdown and fragmentation of the aging prosthesis. She cannot walk because she has so much ache and pain. Because of this, she has experienced deconditioning. PHYSICAL EXAMINATION: VITAL SIGNS: Blood pressure 92/52, heart rate 84, respirations 18, oxygen saturation 92% on 2 L nasal cannula that came up to 93% after she had adequate suction of her lungs through the tracheostomy tube. She has audible rhonchi. She is very asthenic, weak and has a sad worried facies. HEENT: Examination with the tongue blade demonstrates the patient's artificial palate graft. There was a hole in it in the central portion, which is 3-4 mm long with 1-2 mm wide. NECK: No cervical adenopathy. No thyromegaly. No sentinel nodes in the supraclavicular region. LUNGS: Marked rhonchi and moderate rales. No wheezes. HEART: S1, S2. There is a murmur that transmits to the neck and also transmits to the left axilla and it is heard very loudly in the left carotid greater than the right carotid and left parasternal border (aortic murmur of aortic stenosis and mitral insufficiency). ABDOMEN: Soft. No guarding. No abdominal discomfort except there is discomfort near her PEG tube. There is soiling around the PEG tube dressing. Bowel sounds are present. EXTREMITIES: Without edema. No tenderness. Moderate muscle loss upper and lower extremities. Deep tendon reflexes hypoactive, but present in upper and lower extremities. Cranial nerves 2 through 12 intact except for she has compromise of her voice because she has the tracheostomy. Tracheostomy is noted and she is cleaned, but with multiple suctions, the trachea is cleared and the moderate rhonchi that was present relented. It is quite obvious when she tried to suction the tracheostomy, she put endotracheal tube in her mouth. She cannot perform suction without a mirror. We did replace the suction tube and the nurse then completed the suction. LABORATORY DATA: She has chest x-ray with moderate infiltrate right lower lobe and right lateral lobe, most likely aspiration pneumonia. This is new since two days ago. She has elevated troponin at 0.89. I did not do ABGs today. She has low sodium and low chloride, which was present in 2014 and was not repeated today. She did not have BMP done today. Troponin today is 0.89, none was done yesterday. She had a troponin done in March, which was normal. On review of her medical records, October 29 and , x2, x3 and October 31, troponins were 0.98, 0.65, 0.79, 0.87, 0.53. It is obvious she has had elevation of troponin tests before. The patient denies any chest pain, but she has moderate significant chest wall pain. On palpation of the left chest, she has moderate discomfort, ribs 9, 10, and 11, (sub- costochondritis with palpable reproducible pain). No abnormality at the xiphoid. ASSESSMENT: 1. Pneumonia, aspiration pneumonia probably secondary to feeding tube. 2. Under hydration. 3. Cachexia. 4. Palatal cancer with previous surgery with palate surgery, a graft placed and resultant visible fenestrated window in part of the graft (either complication or placed by design). 5. PEG tube in place to feed her. 6. Elevated troponin tests from October to now. It is indeterminate why she had elevated troponin tests from the normal troponin tests 2 days ago. She did not have one taken yesterday. 7. Etiology of her elevated troponin possibly elevated by other confounding variables:from pulmonary insufficiency, or possible congestive heart failure with associated chronic obstructive lung disease, or associated renal disease. She has had previous renal studies in March, normal creatinine with a GFR estimated greater than 60, so renal insufficiency probably it is not the cause of the troponin elevation. It is possible troponin is elevated by her cancer of the throat. PLAN: 1. Discussed with the family of either sending her to [place] because of the elevated troponin or sending her home or put her in the hospital. Family felt comfortable taking her home, did not feel a desire to send her to [place] or hospitalize her. 2. EKG demonstrated ST elevation: V3, 2 mm and is less than 1 mm in V2 with ST depression in V5 V6 - possible CA. Possible non stemi. The patient does not want to be admitted to the hospital. 3. Chronic obstructive lung disease, possible aspiration. 4. PEG tube, possible source of aspiration. 5. Cancer of the palate with previous surgery and also subsequent palatal graft. 6. Mild hypoxia which has cleared with adequate tracheal suctioning. 7. Inadequate home tracheal suction, needs to be trained on how to do it as home health care needs to get involved in her care. 8. Malnutrition/asthenia/cachexia secondary to cancer, perhaps needs increased caloric density to tube feedings and dietitian consult. 9. The patient needs help from home care to learn how to suction trachea. 10.Previous documented hypochloremia and hypokalemia. BMP was not performed at this time. 11.Depression. 12.Hypertension that is stable. 13.She did stop smoking August 2016, chronic obstructive lung disease with 50+ pack years. 14.Mitral valve insufficiency as well as aortic valve stenosis, murmurs and valvuloplasties. 15.More frequent nebulizer treatments. 16.More frequent suctioning of tracheostomy. 17.Exercise upper body due to deconditioning. 18.Follow-up with doctor in 3-5 days, earlier if worse. /[id number] ALPESH/REINALDO RAMIREZ
== END 2016-12-09 15:49 | disposition home or self-care (01) ==
LOC: FB.ED 11:27
DX: J69.0 Pneumonitis due to inhalation of food and vomit (principal); E10.9 Type 1 diabetes mellitus without complications; I11.0 Hypertensive heart disease with heart failure; C05.9 Malignant neoplasm of palate, unspecified; Z79.899 Other long term (current) drug therapy; Z88.5 Allergy status to narcotic agent; Z88.1 Allergy status to other antibiotic agents; Z88.8 Allergy status to other drugs, medicaments and biological substances
CPT/HCPCS: 36415; 36600; 71020; 82803; 84484; 93005; 94640; 96372; 99283; A9270; J1170; J7620; 99284

== ENCOUNTER 2016-12-10 15:04 | Observation (INO) | payer MEDICARE, BC ==
[2016-12-10] MEDS ORDERED: Albuterol/Ipratropium 3.0-0.5 MG/3 ML Neb Soln NEB ONE (15:49)
--- NOTE | 2016-12-10 15:56 | EDM.PDOC ---
ED HPI GENERAL MEDICAL PROBLEM - General Chief Complaint: Respiratory Problem Stated Complaint: LEFT RIB Time Seen by Provider: 12/10/16 15:40 Source of Information: Reports: Patient History Limitations: Reports: Other (Speaks in whispers due to tracheostomy) - History of Present Illness INITIAL COMMENTS - FREE TEXT/NARRATIVE: 76 yo female with a tracheostomy was seen here last Saturday and placed on Levaquin that she is still taking. No fever. Has had only one neb tx today, albuterol at 1 pm. Has been falling more lately and is interested in being in a [facility], but only if she can get a 3 day qualifying stay. Has not fallen since a fall that she was evaluated for this past Saturday. Quit smoking just 3 mos ago. Is SOB today more than usual. No chills. Her water was increased via her G-tube feedings as a result of assessing her as mildly dehydrated this past Saturday. Onset: Gradual Duration: Day(s):, Getting Worse Location: Reports: Chest Quality: Reports: Other (no new pain.) Severity: Mild Improves with: Reports: None Worsens with: Reports: None Context: Reports: Other (COPD with a trach) Associated Symptoms: Reports: Cough, Shortness of Breath Treatments PATENT DRAFTER: Reports: Other (see below) (Albuterol 3 hrs ago) left ribs Pain Score (Numeric/FACES): 4 - Related Data Allergies Allergy/AdvReac Type Severity Reaction Status Date / Time bupropion [From Wellbutrin] Allergy Itching Verified 12/10/16 16:05 morphine Allergy Nausea and Verified 12/10/16 16:05 Vomiting sulfamethoxazole Allergy Rash Verified 12/10/16 16:05 [From Bactrim] trimethoprim [From Bactrim] Allergy Rash Verified 12/10/16 16:05 Home Meds: Home Meds Zolpidem [Ambien] 5 mg GTUBE BEDTIME PRN 03/12/14 [History] Acetaminophen [Tylenol] 650 mg GTUBE Q6H PRN 11/28/16 [History] Budesonide [Pulmicort] 0.5 mg IH BID 11/28/16 [History] Bumetanide 0.5 mg GTUBE DAILY 11/28/16 [History] Chlorhexidine Gluconate 0.12% [Peridex 0.12% Rinse] 15 ml PO BID 11/28/16 [ History] Cholecalciferol (Vitamin D3) [Vitamin D3] 1,000 unit GTUBE DAILY 11/28/16 [ History] Citalopram [Citalopram HBr] 20 mg GTUBE BEDTIME 11/28/16 [History] ClonazePAM [KlonoPIN] 0.25 mg GTUBE BID 11/28/16 [History] Famotidine [Pepcid] 20 mg GTUBE BID 11/28/16 [History] Melatonin 6 mg GTUBE BEDTIME 11/28/16 [History] OLANZapine [Olanzapine] 2.5 mg GTUBE BID 11/28/16 [History] Potassium Chloride 10 meq GTUBE DAILY 11/28/16 [History] Probiotic Yogurt 30 ml GTUBE BID 11/28/16 [History] Protein Supplement [Protein Powder] 15 gm GTUBE DAILY 11/28/16 [History] Sennosides [Senna] 8.8 mg GTUBE BID 11/28/16 [History] Thiamine HCl 100 mg GTUBE BID 11/28/16 [History] Valproic Acid [Depakene Syrup] 250 mg GTUBE BEDTIME 11/28/16 [History] Lidocaine 5% [Lidoderm 5%] 700 mg TOP DAILY #30 patch 12/05/16 [Rx] Metoprolol Tartrate [Lopressor] 12.5 mg GTUBE BID #60 tablet 12/05/16 [Rx] Nicotine [Habitrol] 14 mg TD DAILY #60 patch 12/05/16 [Rx] Acetaminophen/Codeine [Tylenol/Codeine 120-12 MG/5 ML] 5 ml PO Q4H #6 oz [Rx] Levofloxacin [Levaquin] 250 mg PO Q24H #10 tablet 12/09/16 [Rx] traMADol HCl [Tramadol HCl] 25 gm MC Q6HR #30 powder 12/09/16 [Rx] Albuterol/Ipratropium [DuoNeb 3.0-0.5 MG/3 ML] 3 ml INH QID 12/10/16 [History] Past Medical History HEENT History: Reports: Epistaxis, Impaired Vision Cardiovascular History: Reports: Heart Murmur, High Cholesterol, Hypertension Respiratory History: Reports: COPD Gastrointestinal History: Reports: Other (See Below) Other Gastrointestinal History: 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 Genitourinary History: Reports: None JAVA DEVELOPER History: Reports: Other (See Below) Other OB/BYN History: hysteractomy Musculoskeletal History: Reports: Arthritis, Back Pain, Chronic, Other (See Below) Other Musculoskeletal History: hip pain Psychiatric History: Reports: Other (See Below) Other Psychiatric History: insomnia Endocrine/Metabolic History: Reports: Diabetes, Type II Oncologic (Cancer) History: Reports: Esophageal, Other (See Below) Other Oncologic History: jaw bone cancer - Infectious Disease History Infectious Disease History: Reports: C-Difficile, Extended Spectrum Beta- Lactamase (ESBL), Influenza, Measles, Mumps, Shingles - Past Surgical History HEENT Surgical History: Reports: None Cardiovascular Surgical History: Reports: None GI Surgical History: Reports: Esophageal Dilatation Other GI Surgeries/Procedures: every 3 month patient has to stretch esophageal muscle Endocrine Surgical History: Reports: None Musculoskeletal Surgical History: Reports: None Oncologic Surgical History: Reports: None Social & Family History - Family History Family Medical History: Noncontributory - Tobacco Use Smoking Status *Q: Former Smoker Years of Tobacco use: 60 Packs/Tins Daily: 1 Used Tobacco, but Quit: Yes Month Tobacco Last Used: years Second Hand Smoke Exposure: No - Caffeine Use Caffeine Use: Reports: None - Alcohol Use Days Per Week of Alcohol Use: 7 Number of Drinks Per Day: 1 Total Drinks Per Week: 7 - Recreational Drug Use Recreational Drug Use: No ED ROS GENERAL - Review of Systems Review Of Systems: See Below Constitutional: Reports: No Symptoms HEENT: Reports: No Symptoms Respiratory: Reports: Shortness of Breath, Wheezing, Cough Cardiovascular: Reports: No Symptoms Endocrine: Reports: No Symptoms GI/Abdominal: Reports: No Symptoms : Reports: No Symptoms Musculoskeletal: Reports: No Symptoms Skin: Reports: No Symptoms Neurological: Reports: No Symptoms ED EXAM, GENERAL - Physical Exam Exam: See Below Exam Limited By: No Limitations General Appearance: Alert, WD/WN, No Apparent Distress, Thin Eye Exam: Bilateral Eye: Normal Inspection Ears: Normal External Exam, Normal Canal, Hearing Grossly Normal Ear Exam: Bilateral Ear: Auricle Normal, Canal Normal Nose: Normal Inspection, Normal Mucosa, No Blood Throat/Mouth: Normal Inspection, Normal Lips, Normal Oropharynx, Normal Voice, No Airway Compromise Head: Atraumatic, Normocephalic Neck: Other (Tracheostomy present. ) Neurological: Alert, Oriented, CN II-XII Intact, No Motor/Sensory Deficits Psychiatric: Normal Affect, Normal Mood Skin Exam: Warm, Dry, Intact, Normal Color, No Rash Lymphatic: No Adenopathy Course - Vital Signs Text/Narrative:: RT suctioned her trach and her oxygen saturations improved to normal afterwards. Duoneb- Last Recorded V/S: Last Vital Signs Temp 36.6 C 12/10/16 16:35 Pulse 82 12/10/16 16:35 Resp 22 H 12/10/16 16:35 BP 94/54 L 12/10/16 16:35 Pulse Ox 95 12/10/16 16:35 - Orders/Labs/Meds Orders: Active Orders 24 hr Category Date Time Status RT Aerosol Therapy [RC] ASDIRECTED Care 12/10/16 15:49 Active Sodium Chloride 0.9% [Normal Saline] 1,000 ml Med 12/10/16 16:45 Active IV .BOLUS Medication Orders Sodium Chloride (Normal Saline) 1,000 mls @ 1,000 mls/hr IV .BOLUS ONE Stop: 12/10/16 17:44 Labs: Laboratory Tests 12/10/16 12/10/16 Range/Units 16:25 16:25 WBC 8.9 (4.5-12.0) X10-3/uL RBC 3.47 (3.23-5.20) x10(6)uL Hgb 11.0 L (11.5-15.5) g/dL Hct 32.4 (30.0-51.3) % MCV 93.3 (80-96) fL MCH 31.5 (27.7-33.6) pg MCHC 33.8 (32.2-35.4) g/dL RDW 16.2 H (11.5-15.5) % Plt Count 282 (125-369) X10(3)uL Sodium 133 L (135-145) mmol/L Potassium 4.5 (3.5-5.3) mmol/L Chloride 92 L D (100-110) mmol/L Carbon Dioxide 28 (23-29) mmol/L BUN 58 H D (8-23) mg/dL Creatinine 0.8 (0.6-1.3) mg/dL Est Cr Clr Drug Dosing TNP Estimated GFR (MDRD) > 60 (>60) BUN/Creatinine Ratio 72.5 H (9-20) Glucose 157 H (80-116) mg/dL Calcium 9.0 (8.6-10.2) mg/dL Meds: Medications Generic Name Dose Route Start Last Admin Trade Name Michaelq PRN Reason Stop Dose Admin Sodium Chloride 1,000 mls @ 1,000 mls/hr 12/10/16 16:45 Normal Saline IV 12/10/16 17:44 .BOLUS ONE Discontinued Medications Generic Name Dose Route Start Last Admin Trade Name Brandie PRN Reason Stop Dose Admin Albuterol/Ipratropium 3 ml 12/10/16 15:49 12/10/16 15:56 Duoneb 3.0-0.5 Mg/3 Ml NEB 12/10/16 15:50 3 ml ONETIME ONE Administration Tramadol HCl 50 mg 12/10/16 17:10 Ultram PO 12/10/16 17:11 ONETIME ONE Departure - Departure Time of Disposition: 17:21 Disposition: Refer to Observation Condition: Fair Clinical Impression: Weakness - Discharge Information Referrals: PCP,Unknown [Primary Care Provider] - Forms: ED Department Discharge - My Orders Last 24 Hours: My Active Orders 12/10/16 15:49 RT Aerosol Therapy [RC] ASDIRECTED 12/10/16 16:45 Sodium Chloride 0.9% [Normal Saline] 1,000 ml IV .BOLUS - Assessment/Plan Last 24 Hours: My Active Orders 12/10/16 15:49 RT Aerosol Therapy [RC] ASDIRECTED 12/10/16 16:45 Sodium Chloride 0.9% [Normal Saline] 1,000 ml IV .BOLUS
[2016-12-10] MEDS ORDERED: Sodium Chloride 0.9% 1,000 ML IV ONE (16:45)
[2016-12-10] MEDS ORDERED: traMADol 50 MG Tab PO ONE (17:10)
[2016-12-10] MEDS ORDERED: Polyethylene Glycol 3350 Powder 17 GM Packet GTUBE PRN (17:24)
[2016-12-10] MEDS ORDERED: Albuterol 0.083% 2.5 MG/3 ML Neb Soln NEB PRN (17:24)
[2016-12-10] MEDS ORDERED: Non-Formulary Medication 1 Each (Acetaminophen [Tylenol] 650 MG) GTUBE PRN (17:52)
[2016-12-10] MEDS ORDERED: ZOLPIDEM 5 MG GTUBE PRN (17:52)
[2016-12-10] MEDS ORDERED: LEVOFLOXACIN 250 MG PO SCH ×2 (18:00→21:00)
[2016-12-10] MEDS ORDERED: ACETAMINOPHEN PO SCH (18:00)
[2016-12-10] MEDS ORDERED: TRAMADOL HCL MC SCH (18:00)
[2016-12-10] MEDS ORDERED: CODEINE PO SCH (18:00)
[2016-12-10] MEDS: Sodium Chloride 0.9% 1,000 ML IV SCH (18:05)
[2016-12-10] MEDS ORDERED: Acetaminophen/Codeine 120-12 MG/5 ML Soln 5 ML UD Cup ONE (20:29)
[2016-12-10] MEDS: Acetaminophen/Codeine 120-12 MG/5 ML Soln 5 ML UD Cup PO PRN ×2 (20:37→20:45)
[2016-12-10] MEDS ORDERED: CHLORHEXIDINE GLUCONATE 0.12% PO SCH (21:00)
[2016-12-10] MEDS ORDERED: SENNOSIDES GTUBE SCH (21:00)
[2016-12-10] MEDS ORDERED: OLANZAPINE 2.5 MG GTUBE SCH (21:00)
[2016-12-10] MEDS ORDERED: THIAMINE HCL 100 MG GTUBE SCH (21:00)
[2016-12-10] MEDS ORDERED: MELATONIN 6 MG GTUBE SCH (21:00)
[2016-12-10] MEDS ORDERED: FAMOTIDINE 20 MG GTUBE SCH (21:00)
[2016-12-10] MEDS ORDERED: METOPROLOL TARTRATE 12.5 MG GTUBE SCH (21:00)
[2016-12-10] MEDS ORDERED: BUDESONIDE 0.5 MG IH SCH (21:00)
[2016-12-10] MEDS ORDERED: VALPROIC ACID 250 MG GTUBE SCH (21:00)
[2016-12-10] MEDS ORDERED: [UNRECOGNIZED DRUG - OTHER] GTUBE SCH (21:00)
[2016-12-10] MEDS ORDERED: Non-Formulary Medication 1 Each (Clonazepam [Klonopin] 0.25 MG) GTUBE SCH (21:00)
[2016-12-10] MEDS ORDERED: Non-Formulary Medication 1 Each (Citalopram [Citalopram Hbr] 20 MG) GTUBE SCH (21:00)
[2016-12-10] MEDS: traMADol 50 MG Tab PO PRN (21:48)
[2016-12-10] MEDS ORDERED: ZOLPIDEM 5 MG PO PRN (22:20)
[2016-12-10] MEDS: Albuterol/Ipratropium 3.0-0.5 MG/3 ML Neb Soln**OWN MED NEB SCH (23:38)
[2016-12-11] MEDS: traMADol 50 MG Tab PO PRN ×2 (03:22→09:06)
[2016-12-11] MEDS: Sodium Chloride 0.9% 1,000 ML IV SCH (07:32)
[2016-12-11] MEDS: Albuterol/Ipratropium 3.0-0.5 MG/3 ML Neb Soln**OWN MED NEB SCH (07:37)
[2016-12-11 08:04] VITALS: BP 118/54
[2016-12-11] MEDS ORDERED: Zolpidem 5 MG Tab GTUBE PRN (08:24)
[2016-12-11] MEDS ORDERED: LIDOCAINE TOP SCH (09:00)
[2016-12-11] MEDS ORDERED: NICOTINE 14 MG TD SCH (09:00)
[2016-12-11] MEDS ORDERED: Albuterol/Ipratropium 3.0-0.5 MG/3 ML Neb Soln*PTOM INH SCH (09:00)
[2016-12-11] MEDS ORDERED: Non-Formulary Medication 1 Each (Potassium Chloride [Potassium Chloride] 10 MEQ) GTUBE SCH (09:00)
[2016-12-11] MEDS ORDERED: Non-Formulary Medication 1 Each (Cholecalciferol (Vitamin D3) [Vitamin D3] 1,000 UNIT) GTUBE SCH (09:00)
[2016-12-11] MEDS ORDERED: BUMETANIDE 0.5 MG GTUBE SCH (09:00)
--- NOTE | 2016-12-11 10:24 | PN ---
DATE SEEN: 12/11/2016 SUBJECTIVE: Jh Esposito is a 76-year-old female, fragile, at risk for safety, was admitted for observation overnight. Feeling better this morning. She has an upcoming visit planned today with her ENT doctor in [place] and a PET scan. OBJECTIVE: HEENT: Speech was soft spoken. Tracheostomy intact. CHEST: Clear. HEART: Regular. ABDOMEN: Feeding tube in place. ASSESSMENT: Complicated disability postoperatively, soft palate surgery. Implications, tracheostomy and feeding tube. PLAN: Discharge. Recommendations, care, and close observation. Where she goes from there will be addressed accordingly. /[id number] ADONIS/REINALDO RAMIREZ
--- NOTE | 2016-12-11 13:51 | HP ---
ADMISSION DATE: 12/10/2016 REASON FOR VISIT: Complicated fatigue, weakness, and recurrent falls. HISTORY OF PRESENT ILLNESS: Jh Esposito is a 76-year-old, female, in attendance, was admitted from [facility] as an outpatient for observation care. She had a complicated soft palate malignancy dating back about four months ago, lengthy hospitalizations both at [place], [facility], and back at [place]. She was discharged just simply last 12/05/2016. She has had three ER visits in the meantime, complicated fall left chest wall injury, need for analgesics, progressive weakness, and intervention. She has a PET scan planned along with visit with ENT surgical technology instructor today. Feedings are through feeding tube only, some oral cares were provided, weakness and disability present. MEDICATIONS: Please see med recon list. ALLERGIES: Bupropion, morphine, sulfa with rash, and trimethoprim with rash. PAST MEDICAL HISTORY: Significant for multiple surgical procedures including about four months ago, soft palate surgery, reconstruction tracheostomy, and feeding tube. She had an initial hospital stay at [place], went to [facility], things went poorly, readmitted to [place], and lengthy stay and recent discharge. Other surgical procedures include a previous jaw surgery, uterine cancer with secondary radiation, a lung cancer spot was radiated, bilateral total hip arthroplasty, appendectomy, and wisdom tooth extraction. Ongoing medical problems include chronic COPD interventions, complicated insomnia, chronic constipation, but no other major problems. It should be noted that she was placed on Levaquin for pneumonia during her 2nd ER stay. SOCIAL HISTORY: , 52, 57 years. Two children; two daughters, five grand kids. Smoked until August of 2016, no alcohol consumption. No illicit drug use. FAMILY HISTORY: Negative for early heart disease, diabetes mellitus, or inheritable cancers. REVIEW OF SYSTEMS: GENERAL: Weak, fatigued, tired. HEENT: Eyes, sees well by report. Ears, sees well by report. Oropharynx, non feeding, tracheostomy. CHEST: Chronic cough, COPD. CARDIOVASCULAR: Denies chest pain, palpitations, or syncope. GI: Occasional constipation. No blood in stool. SKIN: No new lesions, eruptions, or moles. ENDOCRINE: No excessive thirst or urination. There is no allergic history of medications noted. ORTHOPEDIC: Generalized joint complaints. PHYSICAL EXAMINATION: VITAL SIGNS: 36.4, 102, 118/54, 75 is the mean pulse, 18 is the respirations, 94% on 1 L. GENERAL: Elderly, cooperative, conversant, cachetic, tracheostomy in place. HEENT: Funduscopic benign. Bright TMs. Clear nasal discharge. Mouth and oropharynx clear. Postoperative changes, soft palate. NECK: No adenopathy. Tracheostomy working. CHEST: Decreased breath sounds throughout all lung uribe. HEART: Regular without ectopy or murmur. ABDOMEN: Feeding tube in place, generalized tenderness. Surgical scar well healed. PELVIC AND RECTAL: Deferred. EXTREMITIES: Well perfused. SKIN: Without rash. Aging process. LABORATORY STUDIES: CBC; white count 8900, hemoglobin 11.0, platelets 282. Electrolytes; 133 sodium, 92 chloride, 58 BUN, creatinine 0.8. Glucose 157. GFR, greater than 60. ASSESSMENT: A 76-year-old female with complicated medical problems, presents with weakness, fatigue, chest wall injury, tracheostomy under observation, feeding tube under observation. PLAN: IV fluids, intervention and care. Close observation. Plan to discharge home tomorrow. /[id number] ADONIS/REINALDO
== END 2016-12-11 09:20 ==
LOC: FB.ED 15:04 → FB.MS 17:22
PROVIDERS: ADMIT Emergency Medicine; ATTEND Family Medicine
DX: J95.89 Other postprocedural complications and disorders of respiratory system, not elsewhere classified (principal); E11.9 Type 2 diabetes mellitus without complications; Z88.1 Allergy status to other antibiotic agents; Z88.2 Allergy status to sulfonamides; Z88.8 Allergy status to other drugs, medicaments and biological substances; Z93.0 Tracheostomy status; Z79.899 Other long term (current) drug therapy; Z98.890 Other specified postprocedural states; Z87.891 Personal history of nicotine dependence
CPT/HCPCS: 36415; 80048; 83735; 85027; 94640; 96360; 96361; 99285; A9270; G0378; J7040; J7620; 99217; 99218; 99284

== ENCOUNTER 2016-12-12 00:46 | Inpatient (IN) | payer MEDICARE, BC ==
[2016-12-12] MEDS: traMADol 50 MG Tab PO PRN ×2 (02:46→09:18)
[2016-12-12] MEDS ORDERED: Lidocaine 5% 700 MG Patch TOP SCH (09:00)
[2016-12-12] MEDS ORDERED: Potassium Chloride 10% 20 MEQ/15 ML Soln 15 ML UD Cup GTUBE PRN (09:25)
[2016-12-12] MEDS ORDERED: Zolpidem 5 MG Tab GTUBE PRN (09:25)
[2016-12-12] MEDS ORDERED: Nicotine 14 MG/24 Hr Patch TOP SCH (09:30)
[2016-12-12] MEDS ORDERED: Levofloxacin 250 MG Tab GTUBE SCH (09:30)
[2016-12-12] MEDS ORDERED: Polyethylene Glycol 3350 Powder 17 GM Packet GTUBE SCH (10:15)
[2016-12-12] MEDS: Acetaminophen/Codeine 300-30 MG Tab GTUBE PRN ×2 (13:30→22:12)
[2016-12-12] MEDS ORDERED: Bisacodyl 10 MG Supp RECTAL PRN (13:45)
[2016-12-12] MEDS: Albuterol/Ipratropium 3.0-0.5 MG/3 ML Neb Soln INH PRN (15:11)
--- NOTE | 2016-12-12 15:59 | HP ---
ADMISSION DATE: 12/12/2016 HISTORY OF PRESENT ILLNESS: Jh Esposito is a 76-year-old, female, re-admitted to swing bed after midnight on 12/12. She had an acute care, brief stay, was seen at [facility], discharge to the care of her family and readmitted to swing bed. Swing bed admission had been planned for on the morning of 12/12. Weakness and difficulty had persuaded. Has a history of complicated soft palate carcinoma, with lengthy multiple hospitalizations at [place], [facility], and swing bed here. She is being admitted to swing bed now for conversion and consideration for fpc care. Ability to proceed at home was a difficult setting. MEDICATIONS: Please see med recon list. ALLERGIES: Bupropion, morphine, sulfamethoxazole, and trimethoprim. PAST MEDICAL HISTORY: Significant for previous soft palate surgery with one positive node. She has had previous jaw cancer, total abdominal hysterectomy for uterine cancer and radiation therapy, appendectomy, and wisdom tooth extraction. Chronic illnesses noted. SOCIAL HISTORY: Lives with of 82. Long-term smoker, recently quit and no alcohol consumption. REVIEW OF SYSTEMS: Weak, fatigue, tired. Tracheostomy in place. Feeding tube in place. Bowels have been a little bit reluctant. Denies chest pain, true respiratory difficulty, blood in stool, blood in urine, and skin rash. PHYSICAL EXAMINATION: VITAL SIGNS: 45.63 kg, 36.5, 120/61, respirations 16, O2 saturation 90% on room air. GENERAL: Cachetic looking young lady. Speech was difficult due to tracheostomy. HEENT: Conjunctivae clear. Bright tympanic membranes. Clear nasal discharge. Mouth and oropharynx reveal postsurgical changes. NECK: Tracheostomy in good place. CHEST: Decreased breath sounds throughout all lung uribe. HEART: Regular without ectopy or murmur. ABDOMEN: Feeding tube in place. No hepatosplenomegaly. : Deferred. RECTAL: Deferred. EXTREMITIES: Perfused. LABORATORY STUDIES: Pending. ASSESSMENT: Readmission for weakness, fatigue, and difficulty home living situation. PLAN: Complementary care. Swing bed. Plan for fpc under consideration. /[id number] /REINALDO
[2016-12-12] MEDS: traMADol 50 MG Tab GTUBE PRN ×2 (16:43→20:37)
[2016-12-12] MEDS ORDERED: Polyethylene Glycol 3350 Powder 17 GM Packet PO SCH (19:15)
[2016-12-12] MEDS ORDERED: Citalopram 20 MG Tab GTUBE SCH (21:00)
[2016-12-12] MEDS ORDERED: Glycerin Adult 2.1 GM Supp RECTAL ONE (21:47)
[2016-12-12] MEDS ORDERED: Ondansetron 4 MG Tab.DIS PO PRN (21:47)
[2016-12-13] MEDS: Albuterol/Ipratropium 3.0-0.5 MG/3 ML Neb Soln INH PRN ×2 (01:51→06:46)
[2016-12-13] MEDS ORDERED: Lidocaine 2% Jelly 5 ML Urojet MUCMEM ONE (02:43)
[2016-12-13] MEDS ORDERED: Albuterol/Ipratropium 3.0-0.5 MG/3 ML Neb Soln NEB PRN (07:26)
[2016-12-13] MEDS ORDERED: Sodium Chloride 0.9% 1,000 ML IV SCH (07:30)
[2016-12-13] MEDS ORDERED: Morphine 2 MG/ML Syringe IVPUSH PRN (07:38)
[2016-12-13 07:59] VITALS: BP 90/58
[2016-12-13] MEDS ORDERED: metroNIDAZOLE/Normal Saline 500 MG in Premix Bag 1 BAG IV SCH (08:00)
[2016-12-13] MEDS ORDERED: Piperacillin/Tazobactam 4.5 GM in Sodium Chloride 0.9% 100 ML IV SCH (09:00)
--- NOTE | 2017-02-01 05:51 | DISCH ---
DISCHARGE DATE: 12/13/2016 HOSPITAL COURSE: Jh Esposito is a 76-year-old, female, readmitted to [facility] to swing bed. She had acute cares, brief stay. Seen at [facility]. Discharge care per family and readmitted to swing bed. Complicated fatigue and difficult home situation problematic. Social Service was involved along with nursing staff, transfer to skilled nursing care, long-term plans accordingly. DISCHARGE MEDICATIONS: Please see med recon list. /[id number] ADONIS/REINALDO
== END 2016-12-13 08:45 | disposition critical access hospital (66) | DRG 948 ==
LOC: FB.MS 00:46 → UNDODISIN 12-13 07:22
PROVIDERS: ADMIT Emergency Medicine; ATTEND Family Medicine
DX: R53.1 Weakness (principal); Z66 Do not resuscitate; C05.1 Malignant neoplasm of soft palate; Z87.891 Personal history of nicotine dependence; Z85.42 Personal history of malignant neoplasm of other parts of uterus; Z85.89 Personal history of malignant neoplasm of other organs and systems; Z92.3 Personal history of irradiation; Z93.0 Tracheostomy status; Z93.1 Gastrostomy status; R06.03 Acute respiratory distress; Z88.5 Allergy status to narcotic agent; Z88.8 Allergy status to other drugs, medicaments and biological substances; Z91.81 History of falling; Z79.82 Long term (current) use of aspirin; Z79.4 Long term (current) use of insulin; Z79.899 Other long term (current) drug therapy; E78.5 Hyperlipidemia, unspecified; I10 Essential (primary) hypertension; E11.9 Type 2 diabetes mellitus without complications; F41.8 Other specified anxiety disorders; I48.91 Unspecified atrial fibrillation
CPT/HCPCS: 36415; 80048; 85025; 85027; 87040; 94640; 97161-GP; A9270-GY; J2270; J7040; J7620

== ENCOUNTER 2016-12-13 07:22 | Inpatient (IN) | payer MEDICARE, BC ==
[2016-12-13] MEDS ORDERED: Sodium Chloride 0.9% 10 ML Syringe FLUSH PRN (08:45)
[2016-12-13] MEDS ORDERED: Zolpidem 5 MG Tab GTUBE PRN (08:49)
[2016-12-13] MEDS ORDERED: Acetaminophen/Codeine 300-30 MG Tab GTUBE PRN (08:49)
[2016-12-13] MEDS ORDERED: traMADol 50 MG Tab GTUBE PRN (08:49)
[2016-12-13] MEDS: metroNIDAZOLE/Normal Saline 500 MG in Premix Bag 1 BAG IV SCH ×2 (09:03→16:41)
[2016-12-13] MEDS ORDERED: Iopamidol 755 Mg/ML 75 ML Bottle IV ONE (09:59)
[2016-12-13] MEDS: Albuterol/Ipratropium 3.0-0.5 MG/3 ML Neb Soln INH PRN ×2 (10:17→14:39)
[2016-12-13] MEDS: Piperacillin/Tazobactam 4.5 GM in Sodium Chloride 0.9% 100 ML IV SCH ×3 (10:31→22:14)
[2016-12-13] MEDS: Enoxaparin 30 MG/0.3 ML Syringe SUBCUT SCH (10:38)
[2016-12-13] MEDS: Nicotine 14 MG/24 Hr Patch TOP SCH (10:42)
[2016-12-13] MEDS: Lidocaine 5% 700 MG Patch TOP SCH (10:44)
[2016-12-13] MEDS: Morphine 2 MG/ML Syringe IVPUSH PRN ×4 (10:52→23:00)
--- NOTE | 2016-12-13 11:52 | HP ---
ADMISSION DATE: 12/13/2016 HISTORY OF PRESENT ILLNESS: Jh Esposito is a 76-year-old, female, who has had a chace complicated course over the last several months' duration. She was found to have soft palate malignancy. Underwent a lengthy intervention, long-term stay at [place], [facility], then back to [facility], and here. Was readmitted recently, short-term stay, discharged, readmitted to swing bed. Ongoing care and future plans in place. During the course of the evening though, she had a couple episodes of vomiting, abdominal distention, absence of stools, and tachypnea and low-grade fever necessitating intervention, and transferred to acute care. Med recon list as noted. PAST MEDICAL HISTORY: Significant for previous soft palate surgery one positive node, previous jaw surgery, total abdominal hysterectomy for uterine cancer, radiation therapy, appendectomy, and wisdom tooth extraction. SOCIAL HISTORY: Lives with , daughters involved. Long-term smoker, just recently quit. No alcohol consumption. No illicit drug use. REVIEW OF SYSTEMS: Fatigue, tired, lethargic. PHYSICAL EXAMINATION: VITAL SIGNS: Stable and documented per exam. CONSTITUTIONAL: Appears much older. Moderate distress and hypoxia. HEENT: Funduscopic benign. Bright TMs. Clear nasal discharge. Mouth and oropharynx clear. NECK: Tracheostomy site intact. CHEST: Coarse rhonchi at both bases. Tachypnea at 40. HEART: Distant heart sounds. ABDOMEN: Distended without pathologic findings. With good bowel sounds. Feeding tube in place. EXTREMITIES: Well perfused. ASSESSMENT: Acute respiratory distress. Tracheostomy in place. PLAN: Medications, care, and treatment appropriate, antibiotic therapy for possible aspiration, diagnostic studies to be performed. Recent PET scan at [place] showed right lung mass, CT of the lung, chest x-ray upright . Complementary care and well being. /[id number] /REINALDO
[2016-12-13] MEDS: Ondansetron 4 MG/2 ML SDV IV PRN (12:56)
--- NOTE | 2016-12-13 13:45 | CT ---
INDICATION: Right lung mass on PET scan. CT CHEST, ABDOMEN, AND PELVIS WITH IV CONTRAST, NO ORAL CONTRAST: Spiral 2.5 mm axial sections were obtained through the chest, abdomen, and pelvis with 53 mL Isovue 370 at 1 mL/second, with sagittal and coronal reconstructions of the chest, abdomen, and pelvis. Examination is 12/13/2016 and is compared with 12/2016 CT PET scan from [place]. Findings were also compared with 11/06/2016 CT of the chest. Total exam DLP = 369.66 mGy-cm. CT CHEST: There is less prominence of the infiltrate in the right upper lobe, which may be on the basis of a resolving pneumonia. A minimal infiltrate in the left upper lobe also appears to be slightly less prominent. Some patchy infiltrate slightly inferiorly to the upper portion of the right upper lobe also appears less prominent than on the previous study of 11/06/2016. There is generally an overall improvement in the areas of infiltrate, except perhaps at the right lung base, where consolidation appears to be perhaps more prominent in the right lower lobe and the middle lobe as well, 12/11/2016 obtained from [place]. Followup of these findings will be necessary with repeat CTs. Aspiration of the small pleural effusion on the right may be helpful for diagnosis. There is again noted consolidating infiltration in both lower lobes , seen both in November and on 12/11/2016. These findings may all be on the basis of pneumonia with pleuritis. The possibility, however, of metastatic disease cannot be excluded without additional diagnostic workup, .including, as mentioned above, thoracentesis and possibly even biopsy, depending upon results of a thoracentesis. No pneumothorax was identified. Scattered patchy areas of infiltrate are noted throughout the upper lobes bilaterally with the small patchy areas of infiltrate perhaps slightly more numerous on the right. Again, the possibility of pneumonia possibly due to aspiration would be a consideration, although diffuse metastatic disease process cannot be excluded. Areas of increased uptake noted on a PET scan, apparently related to focal areas of infiltrate in the upper poles of the upper lobes bilaterally, are again noted and again cannot be determined to be cancer, due to their presence and similar appearance or slightly less prominent appearance, compared with 11/06/2016 examination. Pneumonia and possibly scarring are felt to be more likely with these two areas of abnormality. The numerous new patchy areas of infiltrate scattered about the lungs are indeterminate in nature. Metastatic disease versus aspiration versus extensive areas of patchy pneumonia. The amount of pleural fluid on the left appears to be significantly decreased compared with 11/06/2016 and also slightly decreased compared with 12/11/2016. The amount of fluid on the right overall also appears to be decreased compared with 11/06/2016 and appears similar to 12/11/2016. The amount of infiltration - consolidating infiltration at the right lung base and possibly the left lung base appears to be increased compared with 12/11/2016. Extensive calcification appears to be present in coronary arteries. The heart is enlarged. Pericardium appears normal. Mediastinal lymphadenopathy is again noted with some fairly enlarged lymph nodes. The possibility of metastatic disease and/or inflammatory change involving these nodes should be considered. IMPRESSION: Widespread areas of focal patchy infiltration are noted throughout the upper lobes with increasing infiltration suggested in the lower lobes also. The numerous tiny areas of focal infiltration that are present are noted to be , for the most part, new. Increased infiltration in both lower lobes - increased consolidating infiltration in both lower lobes is also present, all compared with 12/11/2016. Spiculated areas of density in the upper lobes near the apices bilaterally unchanged from 12/11/2016 but appear slightly less prominent than on 11/06/2016. These could represent areas of scarring and possibly superimposed pneumonia. Pneumonia and/or metastatic disease is difficult to exclude in these areas. Pneumonia is felt to be more likely, due to the significant rapid change, compared with 12/11/2016. Findings should be correlated clinically. CT ABDOMEN AND CT PELVIS: Examination of the abdomen and pelvis was obtained by CT as noted above and compared with 12/11/2016 and the lower portion of the chest CT from 11/06/2016. Extensive arterial calcifications are noted. The gallbladder appears somewhat distended but is less distended than on the previous study. No calculi were demonstrated. The wall may be slightly thickened, however. This raises question of cholecystitis but should be correlated clinically. There is abdominal and especially pelvic ascites. The etiology is indeterminate. However, there are numerous loops of severely distended small bowel into the pelvis with air fluid levels. The possibility of a process such as a severe paralytic ileus would be a consideration. Peritonitis cannot be excluded. No gross nodularity to strongly suggest peritoneal seeding is identified. The exact site of obstruction is not identified, although the terminal ileum appears to be relatively normal in caliber, raising question of location of mechanical obstruction as a possibility at the distalmost ileum. There is stool, however, in the colon, similar to two days ago. A gastric feeding tube is noted in place. A probable benign cystic structure is noted of small size at lower pole right kidney. A larger similar finding at the lower pole of the left kidney with additional small cysts and moderate sized cysts in both kidneys. The adrenal glands were unremarkable. The spleen had a normal appearance. A definite pancreatic mass is not identified; however, the common pancreatic duct was dilated to 5.6 mm in the body of the pancreas, and it can be followed to the head of the pancreas and duodenum without a definite obstructive process identified. An intraductal lesion would be a consideration. The common pancreatic duct was dilated to a greater extent in the head area, up to approximately 8.2 mm. the common bile duct measured approximately 5.9 mm, which is within normal range for this age group. No definite retroperitoneal mass was identified. Bilateral total hip arthroplasties are noted, producing a high degree of hard beam artifact, which limits detail in that portion of the lower pelvis. The urinary bladder appeared grossly normal. The uterus is not visualized, compatible with history of its removal. The appendix was not definitely visualized. Degenerative changes and disk disease are noted at the L2 through S1 levels with an anterior compression of indeterminate age at L5 of mild degree. IMPRESSION: 1. Dilated loops of fluid-filled small bowel through the entire small bowel, except the terminal ileum. The possibility of a mechanically obstructive process at that level cannot be excluded; however, paralytic ileus may be present - correlate clinically. There is stool in the colon. 2. Abdominal and pelvic ascites. No free air. Cannot exclude metastatic disease versus peritonitis versus other etiology. 3. Gastric feeding tube in place. 4. Extensive ASD. 5. Mild Multicystic disease of the kidneys. 6. No specific liver lesion or other finding to strongly suggest metastatic disease. 7. Dilated common pancreatic duct, etiology indeterminate. MRCP may be warranted, depending upon clinical correlation and lab value correlation. 8. Post hysterectomy. 9. Degenerative changes and disk disease L2 through S1. CT PELVIS: Examination of the pelvis was obtained by CT as noted above. Extensive arterial calcifications are noted. Pelvic ascites is noted. Dilated loops of small bowel with air fluid levels are noted down to the terminal ileum , raising question of either mechanically or paralytically obstructed bowel. The uterus is absent, compatible with history of its removal. Report was given in person to Dr. Barker at 1210 hours on 12/13/2016. Report faxed to Dr. Barker at 1340 hours on 12/13/2016. [facility]
[2016-12-13] MEDS ORDERED: Sodium Chloride 0.9% 1,000 ML IV ONE (14:45)
[2016-12-13] MEDS: Ketorolac 30 MG/ML SDV IVPUSH PRN ×2 (15:12→20:48)
--- NOTE | 2016-12-13 15:20 | CR ---
INDICATION: Abdominal distension. ABDOMEN: Three images of the abdomen in supine and upright projections were obtained and revealed a nasogastric tube with its tip at the distal esophagus. It would need to be advanced at least 15 cm for better positioning. There appears to be some gas in the distal rectum and in the colon in general with some stool. Bilateral THAs are noted. Hazy density in the pelvis may represent pelvic ascites. No other organomegaly or mass lesions were suggested. IMPRESSION: 1. Findings are felt to be most compatible with a paralytic ileus, although a distal small bowel obstruction at the level of the terminal ileum may be present. 2. Possible pelvic ascites. 3. ASD. 4. 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 5. Nasogastric tube needs to be advanced approximately 15 cm for better positioning. 6. Gastric feeding tube is noted in place. Report faxed to Dr. Barker on 12/13/2016 at 1525 hours. [facility]
[2016-12-13] MEDS ORDERED: Sodium Phosphate,Monobasic/Sodium Phosphate,Dibasic Enema 133 ML Bottle RECTAL ONE (18:19)
[2016-12-13] MEDS: Sodium Chloride 0.9% 1,000 ML IV SCH ×2 (18:35→23:36)
[2016-12-13] MEDS ORDERED: Citalopram 20 MG Tab GTUBE SCH (21:00)
--- NOTE | 2016-12-13 23:19 | CONS ---
DATE OF CONSULTATION: 12/13/2016 REASON FOR CONSULTATION: Abdominal distention as well as questionable lung mass, effusion on the right lower lung field. HISTORY OF PRESENT ILLNESS: This is a 76-year-old white female, who has had a rather complicated course over the summer. She underwent a resection of what appeared to be a soft palate tumor. Apparently, had long-term stay at both [facility], and then back to [facility] for swing bed, and then finally here to [place], was sent home last week. Apparently, she had a fall and returned to swing bed here for further care and strengthening. During her admission yesterday, she was noted to have some episodes of vomiting as well as abdominal distention. She reports her last bowel movement was 5 days ago. Denies any flatus, and in addition, she was noted to have what appeared to be a mass with effusion on her right lower lobe of her lung and effusion in that area and thoracentesis was recommended as part of a diagnostic workup. SOCIAL HISTORY: The patient lives with her . Has a history of smoking. Denies any alcohol use. PAST MEDICAL HISTORY: Significant for soft palate malignancy, previous jaw surgery. She has had a total abdominal hysterectomy for uterine cancer, history of radiation therapy, appendectomy, and wisdom tooth extraction. MEDICATIONS: At the time of evaluation include: 1. Acetaminophen with Codeine No.3 elixir 300/30. 2. DuoNeb inhaler q.i.d. 3. Lovenox 30 mg subcu daily. 4. Ketorolac 15 mg IV q.6 hours as needed for pain. 5. Lubriderm as needed. 6. Metronidazole 500 mg IV q.8 hours. 7. Morphine sulfate 2 mg IV q.2 hours as needed for respiratory distress. 8. Habitrol 12 mg topical patch. 9. Zofran 4 mg IV q.6 hours as needed for vomiting. 10.Piperacillin and tazobactam 4.5 g IV q.6 hours. REVIEW OF SYSTEMS: The patient has had some weight loss, fatigue, and some weakness, otherwise does have some respiratory issues as well as constipation. She has an indwelling Villalpando and apparently, has no neurologic issues. PHYSICAL EXAMINATION: VITAL SIGNS: Stable. She was afebrile. GENERAL: This is a well-developed, cachectic-appearing female appearing older than her stated age. HEENT: Grossly within normal limits. LUNGS: Occasional rhonchi on both bases with some dullness to percussion on the right side. HEART: Regular rate and rhythm. ABDOMEN: Distended with some tympany, but no rebound or guarding was noted. Feeding tube was in place. LABORATORY DATA: Laboratory evaluation demonstrates specific gravity in her urine of 1.005 with a small amount bilirubin and urobilinogen, and a small amount of leukocyte esterase. CT scan on her admission of the abdomen, chest, and pelvis demonstrate the following widespread patchy infiltrates in the upper lobes, tiny areas of focal infiltration were noted for the most part in both lower lobes, a spiculated area of density in the upper lobes near the apices, which is unchanged, pneumonia or metastatic disease is impossible to exclude, pneumonia is felt to be more likely due to the significant rapid change compared to her previous films. Abdomen and pelvis findings demonstrate dilated loops of fluid-filled small bowel throughout the entire small bowel. There is stool in the colon. Some pelvis and abdominal ascites as noted. G tube is in place. She was noted to have some atherosclerotic disease as well as multiple cysts in the kidney. There is a slight dilatation of the common pancreatic duct and she has some degenerative joint changes. ASSESSMENT AND PLAN: Abdominal distention appears to be more likely due to an ileus rather than an overt surgical condition at this point. Still has a fair amount of stool on her right side cell, so I am recommending an enema to see if we can get her bowels to move. With the effusion on the right, there is a recommendation from her PET scan to consider thoracentesis. We will set this up for tomorrow and hold her Lovenox tomorrow morning. This will require an ultrasound guidance. /[id number] /BRUECL
[2016-12-14] MEDS: metroNIDAZOLE/Normal Saline 500 MG in Premix Bag 1 BAG IV SCH ×3 (01:24→17:00)
[2016-12-14] MEDS: Morphine 2 MG/ML Syringe IVPUSH PRN ×3 (01:32→16:30)
[2016-12-14] MEDS ORDERED: Lidocaine 1% 30 ML SDV INJECT STA (02:20)
[2016-12-14] MEDS ORDERED: Lidocaine 2% Jelly 5 ML Urojet ONE (02:21)
[2016-12-14] MEDS: Piperacillin/Tazobactam 4.5 GM in Sodium Chloride 0.9% 100 ML IV SCH ×4 (03:38→21:56)
[2016-12-14] MEDS: Ketorolac 30 MG/ML SDV IVPUSH PRN ×2 (03:52→12:13)
[2016-12-14] MEDS: Albuterol/Ipratropium 3.0-0.5 MG/3 ML Neb Soln INH PRN ×3 (07:35→18:47)
[2016-12-14] MEDS: Nicotine 14 MG/24 Hr Patch TOP SCH ×2 (08:59→09:03)
--- NOTE | 2016-12-14 09:02 | PN ---
DATE SEEN: 12/14/2016 SUBJECTIVE: Jh Esposito is a 76-year-old female with a complicated clinical course over the last 4 months' duration. A lengthy stay in [place] post-soft palate carcinoma surgery; recurrent ER visits, interventions, and care. Switched from swing bed yesterday with abdominal pain, repetitive vomiting, abdominal distention, and hypotension. Workup in progress. RADIOGRAPHIC STUDIES: PET scan done in [place], followup CT revealed suspicion for some lesions in the right lower lung. Had been seen by Dr. Roberson, Surgery, who did an evaluation of her belly pain, felt to be stable. Fleet Enema given with some benefit-decreasing distention. Has a planned thoracentesis under ultrasound guidance by Dr. Roberson later today. Villalpando catheter was placed due to disability. Feeling better in terms of her respiratory well-being. Laboratory studies are noted. OBJECTIVE: VITAL SIGNS: Much better; Temperature 36.3, pulse 102, blood pressure 105/56, respirations 22, oxygen saturations 99% on O2. General: Speech was limited due to tracheostomy. CHEST: Diffuse wheeze and coarse rhonchi. Distant heart sounds. ABDOMEN: Benign, markedly distended. Feeding tube in place. ASSESSMENT: 1. Paralytic ileus, no signs of a mechanical obstruction. 2. Complicated underlying respiratory lung disease. 3. Soft palate surgery, postoperative. PLAN: She removed her NG tube. Appears to be comfortable. We will do IV fluids, continue intervention, and start feedings when Dr. Roberson feels it is appropriate. /[id number] ADONIS/REINALDO
[2016-12-14] MEDS: Lidocaine 5% 700 MG Patch TOP SCH (09:05)
[2016-12-14] MEDS ORDERED: Acetaminophen/Codeine 120-12 MG/5 ML Soln 5 ML UD Cup PO PRN (09:06)
[2016-12-14] MEDS: Enoxaparin 30 MG/0.3 ML Syringe SUBCUT SCH (09:10)
[2016-12-14] MEDS: Sodium Chloride 0.9% 1,000 ML IV SCH (09:14)
--- NOTE | 2016-12-14 11:09 | PCM.CONSN ---
- General Info Date of Service: 12/14/16 - Review of Systems Pulmonary: Reports: Shortness of Breath Cardiovascular: Reports: Other (tachycardic ) Gastrointestinal: Reports: Constipation - Patient Data Vitals - Most Recent: Last Vital Signs Temp 36.2 C 12/14/16 07:15 Pulse 126 H 12/14/16 07:15 Resp 28 H 12/14/16 07:15 BP 106/58 L 12/14/16 07:15 Pulse Ox 97 12/14/16 07:15 Weight - Most Recent: 46.323 kg I&O - Last 24 Hours: Intake & Output 12/13/16 12/14/16 12/14/16 22:59 06:59 14:59 Intake Total 300 2443 364 Output Total 300 Balance 300 2143 364 Lab Results Last 24 Hours: Laboratory Results - last 24 hr 12/13/16 Range/Units 17:00 Urine Color Yellow (YELLOW) Urine Appearance Clear (CLEAR) Urine pH 5.0 (5.0-6.5) Ur Specific [place] 1.005 L (1.010-1.025) Urine Protein Trace (NEGATIVE) mg/dL Urine Glucose (UA) Normal (NEGATIVE) mg/dL Urine Ketones Negative (NEGATIVE) mg/dL Urine Occult Blood Negative (NEGATIVE) Urine Nitrite Negative (NEGATIVE) Urine Bilirubin Small H (NEGATIVE) Urine Urobilinogen 1 H (NEGATIVE) mg/dL Ur Leukocyte Esterase Small H (NEGATIVE) Urine RBC 0-5 (0) Urine WBC 0-5 (0) Ur Squamous Epith Cells Occasional (NS,R,O) Urine Bacteria Rare H (NS) Med Orders - Current: Current Medications Acetaminophen/Codeine Phosphate (Tylenol/Codeine 120-12 Mg/5 Ml) 12.5 ml PO TID PRN PRN Reason: PAIN Albuterol/Ipratropium (Duoneb 3.0-0.5 Mg/3 Ml) 3 ml INH QID PRN PRN Reason: BREATHING Last Admin: 12/14/16 07:35 Dose: 3 ml Enoxaparin Sodium (Lovenox) 30 mg SUBCUT DAILY [facility] Last Admin: 12/14/16 09:10 Dose: 30 mg Metronidazole 500 mg/ Premix 100 mls @ 100 mls/hr IV Q8H [facility] Last Admin: 12/14/16 09:12 Dose: 100 mls/hr Piperacillin Sod/Tazobactam (Sod 4.5 gm/ Sodium Chloride) 100 mls @ 200 mls/hr IV Q6H [facility] Last Admin: 12/14/16 03:38 Dose: 200 mls/hr Sodium Chloride (Normal Saline) 1,000 mls @ 100 mls/hr IV ASDIRECTED [facility] Last Admin: 12/14/16 09:14 Dose: 100 mls/hr Ketorolac Tromethamine (Toradol) 15 mg IVPUSH Q6H PRN PRN Reason: abd pain Stop: 12/18/16 12:40 Last Admin: 12/14/16 03:52 Dose: 15 mg Lidocaine (Lidoderm 5%) 700 mg TOP DAILY [facility] Last Admin: 12/14/16 09:05 Dose: 700 mg Miscellaneous Information (Remove Patch) 1 ea TRDERM BEDTIME [facility] Last Admin: 12/13/16 20:00 Dose: 1 ea Morphine Sulfate (Morphine) 2 mg IVPUSH Q2H PRN PRN Reason: respiratory distress Last Admin: 12/14/16 07:13 Dose: 2 mg Nicotine (Habitrol) 14 mg TOP DAILY [facility] Last Admin: 12/14/16 09:03 Dose: 14 mg Ondansetron HCl (Zofran) 4 mg IV Q6H PRN PRN Reason: Nausea/Vomiting Last Admin: 12/13/16 12:56 Dose: 4 mg Sodium Chloride (Saline Flush) 10 ml FLUSH ASDIRECTED PRN PRN Reason: Keep Vein Open Discontinued Medications Acetaminophen/Codeine Phosphate (Tylenol With Codeine No.3 300mg/30mg) 1 tab GTUBE TID PRN PRN Reason: Pain Last Admin: 12/14/16 08:49 Dose: 1 tab Citalopram Hydrobromide (Celexa) 20 mg GTUBE BEDTIME [facility] Sodium Chloride (Normal Saline) 1,000 mls @ 500 mls/hr IV .BOLUS ONE Stop: 12/13/16 16:44 Last Admin: 12/13/16 16:11 Dose: 500 mls/hr Iopamidol (Isovue-370 (76%)) 75 ml IV ASDIRECTED ONE Stop: 12/13/16 10:00 Last Admin: 12/13/16 11:06 Dose: 53 ml Lidocaine HCl (Xylocaine 2% Jelly) Confirm Administered Dose 5 ml .ROUTE .STK- MED ONE Stop: 12/14/16 02:22 Last Admin: 12/14/16 03:25 Dose: 5 ml Sodium Biphosphate/Sodium Phosphate (Fleet Enema) 133 ml RECTAL ONETIME ONE Stop: 12/13/16 18:20 Last Admin: 12/13/16 19:55 Dose: 133 ml Tramadol HCl (Ultram) 50 mg GTUBE Q4H PRN PRN Reason: Pain Zolpidem Tartrate (Ambien) 5 mg GTUBE BEDTIME PRN PRN Reason: Insomnia - Exam General: Alert Lungs: Decreased Breath Sounds Cardiovascular: Regular Rate GI/Abdominal Exam: Normal Bowel Sounds, Soft, Non-Tender Consult PN Assessment/Plan Procedures: Procedures AIRWAY INHALATION TREATMENT (12/09/16) ASSAY OF CREATININE (09/15/14) ASSAY OF TROPONIN QUANT (12/09/16) BLOOD GASES ANY COMBINATION (12/09/16) CHEST X-RAY 2VW FRONTAL&LATL (12/09/16) COLONOSCOPY AND BIOPSY (03/15/14) COLONOSCOPY W/LESION REMOVAL (03/15/14) COMPLETE CBC W/AUTO DIFF WBC (03/16/14) COMPREHEN METABOLIC PANEL (03/16/14) CT ABD & PELV 1/> REGNS (09/15/14) CT SOFT TISSUE NECK W/DYE (06/15/16) CT THORAX W/DYE (03/05/14) ELECTROCARDIOGRAM TRACING (12/09/16) EMERGENCY DEPT VISIT (12/09/16) EMERGENCY DEPT VISIT (12/08/16) EMERGENCY DEPT VISIT (01/19/16) EMERGENCY DEPT VISIT (10/26/15) METABOLIC PANEL TOTAL CA (03/16/14) ROUTINE VENIPUNCTURE (12/09/16) THER/PROPH/DIAG INJ SC/IM (12/09/16) TISSUE EXAM BY PATHOLOGIST (03/15/14) WITHDRAWAL OF ARTERIAL BLOOD (12/09/16) X-RAY EXAM RIBS/CHEST4/> VWS (12/08/16) (1) Pleural effusion on right SNOMED Code(s): 99257315 Code(s): J90 - PLEURAL EFFUSION, NOT ELSEWHERE CLASSIFIED Current Visit: Yes (2) Ileus SNOMED Code(s): 689133511 Code(s): K56.7 - ILEUS, UNSPECIFIED Current Visit: Yes Problem List Initiated/Reviewed/Updated: Yes Plan: at this point given her heart rate and respiratory rate, will hold off on the thoracentesis. Morbidity involved with any complication would be very severe, nitni with pneumothorax. Discussed this with the pt, and she is in agreement and appears to understand.
[2016-12-15] MEDS: metroNIDAZOLE/Normal Saline 500 MG in Premix Bag 1 BAG IV SCH ×2 (00:54→09:42)
[2016-12-15] MEDS: Albuterol/Ipratropium 3.0-0.5 MG/3 ML Neb Soln INH PRN ×2 (00:57→08:06)
[2016-12-15] MEDS: Piperacillin/Tazobactam 4.5 GM in Sodium Chloride 0.9% 100 ML IV SCH ×2 (03:42→10:39)
[2016-12-15] MEDS: Ketorolac 30 MG/ML SDV IVPUSH PRN (05:57)
[2016-12-15] MEDS: Ondansetron 4 MG/2 ML SDV IV PRN (06:05)
[2016-12-15] MEDS: Sodium Chloride 0.9% 1,000 ML IV SCH (09:31)
[2016-12-15] MEDS: Nicotine 14 MG/24 Hr Patch TOP SCH (09:47)
[2016-12-15] MEDS: Lidocaine 5% 700 MG Patch TOP SCH (09:49)
[2016-12-15] MEDS: Enoxaparin 30 MG/0.3 ML Syringe SUBCUT SCH (09:51)
[2016-12-15 10:33] VITALS: BP 109/63
[2016-12-15] MEDS: Morphine 2 MG/ML Syringe IVPUSH PRN (11:31)
--- NOTE | 2016-12-15 11:57 | PCM.DCSUM1 ---
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 History of uterine cancer. Consults: Gen. surgery, Dr. Roberson. Procedures: CT scan of the chest abdomen and pelvis was performed on the day of admission showing: Widespread areas of focal patchy infiltration are noted throughout the upper lobes with increasing infiltration suggested in the lower lobes also. The numerous tiny areas of focal infiltration that are present are noted to be, for the most part, new. Increased infiltration in both lower lobes-increased consolidating infiltration in both lower lobes is also present, all compared with 12/11/2016. Spiculated areas of density in the upper lobes near the apices bilaterally unchanged from 12/11/2016 but appears slightly less prominent than on 11/06/2016. This could represent areas of scarring and possibly superimposed pneumonia. Pneumonia and/or metastatic disease is difficult to exclude in these areas. Pneumonia is felt to be more likely due to the significant rapid change, compared with 12/11/2016. Findings should be correlated clinically. Dilated loops of fluid-filled small bowel through the entire small bowel, except the terminal ileum. The possibility of a mechanically obstructive process cannot be excluded, however, paralytic ileus may be present - correlate clinically. There is stool in the colon. 2. Abdominal and pelvic ascites. No free air. Cannot exclude metastatic disease versus peritonitis versus other etiology. 3. Gastric feeding tube in place. 4. Extensive ASD. 5. Mild multicystic disease of the kidneys. 6. No specific liver lesion or other finding to strongly suggest metastatic disease. 7. Dilated common pancreatic duct etiology indeterminate. MRCP be warranted, depending upon clinical correlation and lab value correlation. 8. Post hysterectomy. 9. Degenerative changes and disc disease L2-S1. On day of transfer, respiratory therapy and myself (Dr. Martinez) removed the patient's uncuffed tracheostomy and replaced it with a size 6 cuffed tracheostomy under sterile technique. Patient tolerated the procedure well. History of present illness: The patient is 76-year-old female with a very complex past medical history over the last few months which began with a diagnosis of a soft palate malignancy and resulted in multiple procedures, respiratory failure, tracheostomy, removal of the tracheostomy, recurrent restaurant tray failure, recurrent tracheostomy, and ultimately admission at this facility for swing bed recovery with the hope to go home. Unfortunately, the patient was discharged and readmitted multiple times because of inability to manage at home. Most recently, the patient was admitted to swing bed on after having fallen at home. On 12/13 she was found to have evidence of aspiration pneumonia after having had a coughing/vomiting episode. CT scan results as above. The patient was started on Zosyn and Flagyl. She seemed to improve initially but the night prior to transfer vital signs became unstable. The patient became tachycardic and hypotensive with systolic blood pressures as low as 85. Heart rates in the 1 teens to 120s. Respiratory rate in the 30s and 8 L high flow oxygen with sats in the mid to high 90s. The patient remained afebrile. On the day of discharge/transfer, the patient noted that she was having abdominal pain worse prominently in the left abdomen. She felt her respiratory status was stable. She noted that she had a dull achiness in the chest and abdomen throughout. She felt ill. History taking was limited by difficulty in communication to the patient's tracheostomy. However discussed at length with the patient with concerns regarding her deteriorating clinical status. Discussed pursuing comfort cares recognizing that this would be a terminal process versus aggressive care with transferred to [place]. The patient requested aggressive care to the limitations of this facility but adamantly declined transfer to [place]. Initial laboratory testing which was performed the morning of transfer showed a white count of 21,000 with a left shift, and increasing creatinine from 0.6-1.2, elevated. BUN at 49, mildly elevated LFTs in the 30s and 40 range, bicarbonate of 20, lactic acid of 1.3. By this point the patient had been transferred to the ICU but had not physically moved locations and IV fluids were running as well as Flagyl. Discussed these results with the patient , including my concerns that in spite of aggressive therapy here she could very well not survive this given her level of chronic illness as well as acute illness. Again reiterated with the patient that intubation and ventilator management as an option at this facility and at that point she did decide she would prefer to be transferred to [place]. At this point I immediately contacted [facility] and spoke with Dr. Anderson the public health technician who agreed to take the patient in transfer. He asked that before the patient be transferred, because of her increased respiratory rate and her history of severe decompensation, that we change the uncuffed tracheostomy tube for a cuffed tracheostomy tube which can be used for ventilator management and that the patient be placed on the vent prior to transfer. This was done. Physical exam at the time of transfer: Patient's vital signs were temperature 97.4 pulse 122, RR 28 on 50% despite oxygen 90 on the ventilator, blood pressure 109/63 which after fluid bolus came up to 118 systolic. O2 sats were 97%. Once the ventilator was started, the patient did very well with respiratory rate over driving into the low 20s and oxygenation maintaining greater than 90% on 50% FiO2. Lungs fairly clear to auscultation with occasional crackles posteriorly and rhonchi. However she had good air exchange. Respiratory rate however was quite rapid. No retracting. Heart tones are regular, very rapid, in the 100 teens. Abdomen was soft moderately tender throughout and exquisitely tender on the left lower quadrant. Mildly distended. No erythema around the PEG tube. Bowel sounds were hypoactive. No masses. No palpable organomegaly or fluid shift. Extremities showed no edema. Significant bruising throughout. Assessment/plan: #1 sepsis/septic shock with patient responding very well to fluid bolus. Given her change in kidney function, increased LFTs, and history of respiratory failure, the patient was transferred to a higher level of care. She was stabilized for transfer by being placed on the ventilator to prevent respiratory failure en route. Unclear etiology of infection. Blood culture pending. Patient has a recent history of aspiration pneumonia which could be underlying source of infection, also concerns regarding small bowel obstruction/ ileus with peritoneal fluid which could be source of infection. Also has indwelling catheter, PEG tube. #2 chronically ill complex patient with multiple medical issues. Did discuss with the patient, her , and her daughter that unfortunately the prognosis is poor for this patient given her underlying poor condition beginning this episode. However her best chance for survival is being transferred to a higher level of care at this point. Disposition: Transferred to [facility]. Accepting physician: Dr. Anderson, public health technician. Discharge time 1100 12/15/2016. - Discharge Data Discharge Date: 10/14/17 Discharge Disposition: DC/Tfer to Acute Hospital 02 Condition: Serious - Patient Summary/Data Consults: Consultations 12/13/16 10:25 Consult to Speech Language Pathology [MANAGER DIGITAL Evaluation and Treatment] [CONS] Routine Please Evaluate and Treat MANAGER DIGITAL Reason for Consult: Dysphagia This query below is only for informational purposes and is not editable. Admission Diagnosis/Problem: Respiratory distress 12/13/16 12:40 Consult to Physician [CONS] Routine Consulting Provider: Neo Roberson Courtesy Call Completed to Consulting Physician: héctor Reason for Consult: abd distention pain ng needs right lung aspiration for? ca Person Notified: mary Date Notified: 12/13/16 Time Notified: 12:44 - Discharge Plan Home Medications: Home Meds Citalopram [Citalopram HBr] 20 mg GTUBE BEDTIME 11/28/16 [History] Potassium Chloride 10 meq GTUBE DAILY PRN 11/28/16 [History] Lidocaine 5% [Lidoderm 5%] 700 mg TOP DAILY #30 patch 12/05/16 [Rx] Nicotine [Habitrol] 14 mg TD DAILY #60 patch 12/05/16 [Rx] Albuterol/Ipratropium [DuoNeb 3.0-0.5 MG/3 ML] 3 ml INH QID PRN 12/10/16 [ History] Zolpidem [Ambien] 5 mg GTUBE BEDTIME PRN tablet 12/11/16 [Rx] Acetaminophen with Codeine [Tylenol with Codeine #3 Tablet] 1 tab GTUBE TID PRN 12/12/16 [History] Levofloxacin [Levaquin] 250 mg GTUBE Q24H 12/12/16 [History] traMADol [Ultram] 50 mg GTUBE Q4H PRN 12/12/16 [History] Patient Handouts: Ileus, Pleural Effusion, Fall Prevention in Hospitals, Adult , Venous Thromboembolism Prevention - Discharge Summary/Plan Comment DC Time >30 min.: Yes - Patient Data Vitals - Most Recent: Last Vital Signs Temp 36.3 C 12/15/16 10:30 Pulse 122 H 12/15/16 10:30 Resp 28 H 12/15/16 10:30 BP 109/63 12/15/16 10:30 Pulse Ox 97 12/15/16 10:30 Weight - Most Recent: 48.398 kg I&O - Last 24 hours: Intake & Output 12/14/16 12/15/16 12/15/16 22:59 06:59 14:59 Intake Total 757 950 450 Output Total 375 325 Balance 382 625 450 Lab Results - Last 24 hrs: Laboratory Results - last 24 hr 12/15/16 12/15/16 12/15/16 Range/Units 09:35 09:35 09:35 WBC 21.1 H (4.5-12.0) X10-3/uL RBC 2.89 L (3.23-5.20) x10(6)uL Hgb 9.0 L D (11.5-15.5) g/dL Hct 27.5 L (30.0-51.3) % MCV 95.0 (80-96) fL MCH 31.2 (27.7-33.6) pg MCHC 32.9 (32.2-35.4) g/dL RDW 16.4 H (11.5-15.5) % Plt Count 294 (125-369) X10(3)uL MPV 7.5 (7.4-10.4) fL Add Manual Diff Yes Neutrophils % (Manual) 87 H (46-82) % Band Neutrophils % 8 H (0-6) % Lymphocytes % (Manual) 2 L (13-37) % Monocytes % (Manual) 1 L (4-12) % Metamyelocytes % 2 H (0-0) % Anisocytosis Few Sodium 144 D (135-145) mmol/L Potassium 3.6 (3.5-5.3) mmol/L Chloride 107 D (100-110) mmol/L Carbon Dioxide 20 L (23-29) mmol/L BUN 49 H D (8-23) mg/dL Creatinine 1.2 (0.6-1.3) mg/dL Est Cr Clr Drug Dosing 30.47 mL/min Estimated GFR (MDRD) 44 L (>60) BUN/Creatinine Ratio 40.8 H (9-20) Glucose 131 H (80-116) mg/dL Lactic Acid 1.3 (0.5-2.2) mmol/L Calcium 7.3 L (8.6-10.2) mg/dL Total Bilirubin 1.0 (0.1-1.3) mg/dL AST 38 H D (5-27) IU/L ALT 30 H D (14-26) IU/L Alkaline Phosphatase 90 (56-112) IU/L Total Protein 5.7 L (6.0-8.0) g/dL Albumin 2.3 L (3.2-4.6) g/dL Globulin 3.4 g/dL Albumin/Globulin Ratio 0.7 Med Orders - Current: Current Medications Acetaminophen/Codeine Phosphate (Tylenol/Codeine 120-12 Mg/5 Ml) 12.5 ml PO TID PRN PRN Reason: PAIN Last Admin: 12/14/16 12:57 Dose: 12.5 ml Albuterol/Ipratropium (Duoneb 3.0-0.5 Mg/3 Ml) 3 ml INH QID PRN PRN Reason: BREATHING Last Admin: 12/15/16 08:06 Dose: 3 ml Enoxaparin Sodium (Lovenox) 30 mg SUBCUT DAILY [facility] Last Admin: 12/15/16 09:51 Dose: 30 mg Metronidazole 500 mg/ Premix 100 mls @ 100 mls/hr IV Q8H [facility] Last Admin: 12/15/16 09:42 Dose: 100 mls/hr Piperacillin Sod/Tazobactam (Sod 4.5 gm/ Sodium Chloride) 100 mls @ 200 mls/hr IV Q6H [facility] Last Admin: 12/15/16 10:39 Dose: 200 mls/hr Sodium Chloride (Normal Saline) 1,000 mls @ 200 mls/hr IV ASDIRECTED [facility] Last Admin: 12/15/16 09:31 Dose: 100 mls/hr Lidocaine (Lidoderm 5%) 700 mg TOP DAILY [facility] Last Admin: 12/15/16 09:49 Dose: 700 mg Miscellaneous Information (Remove Patch) 1 ea TRDERM BEDTIME [facility] Last Admin: 12/14/16 20:39 Dose: 1 ea Morphine Sulfate (Morphine) 2 mg IVPUSH Q2H PRN PRN Reason: respiratory distress Last Admin: 12/15/16 11:31 Dose: 2 mg Nicotine (Habitrol) 14 mg TOP DAILY [facility] Last Admin: 12/15/16 09:47 Dose: 14 mg Ondansetron HCl (Zofran) 4 mg IV Q6H PRN PRN Reason: Nausea/Vomiting Last Admin: 12/15/16 06:05 Dose: 4 mg Sodium Chloride (Saline Flush) 10 ml FLUSH ASDIRECTED PRN PRN Reason: Keep Vein Open Discontinued Medications Acetaminophen/Codeine Phosphate (Tylenol With Codeine No.3 300mg/30mg) 1 tab GTUBE TID PRN PRN Reason: Pain Last Admin: 12/14/16 08:49 Dose: 1 tab Citalopram Hydrobromide (Celexa) 20 mg GTUBE BEDTIME [facility] Sodium Chloride (Normal Saline) 1,000 mls @ 500 mls/hr IV .BOLUS ONE Stop: 12/13/16 16:44 Last Admin: 12/13/16 16:11 Dose: 500 mls/hr Iopamidol (Isovue-370 (76%)) 75 ml IV ASDIRECTED ONE Stop: 12/13/16 10:00 Last Admin: 12/13/16 11:06 Dose: 53 ml Ketorolac Tromethamine (Toradol) 15 mg IVPUSH Q6H PRN PRN Reason: abd pain Stop: 12/18/16 12:40 Last Admin: 12/15/16 05:57 Dose: 15 mg Lidocaine HCl (Xylocaine 2% Jelly) Confirm Administered Dose 5 ml .ROUTE .STK- MED ONE Stop: 12/14/16 02:22 Last Admin: 12/14/16 03:25 Dose: 5 ml Sodium Biphosphate/Sodium Phosphate (Fleet Enema) 133 ml RECTAL ONETIME ONE Stop: 12/13/16 18:20 Last Admin: 12/13/16 19:55 Dose: 133 ml Tramadol HCl (Ultram) 50 mg GTUBE Q4H PRN PRN Reason: Pain Zolpidem Tartrate (Ambien) 5 mg GTUBE BEDTIME PRN PRN Reason: Insomnia *Q Meaningful Use (DIS) - VTE *Q VTE Criteria *Q: - Stroke *Q Stroke Criteria *Q: - AMI *Q AMI Criteria *Q:
== END 2016-12-15 11:45 | DRG 208 ==
LOC: UNDOADMIN 07:22 → FB.MS 07:22
PROVIDERS: ADMIT Family Medicine; ATTEND Family Medicine
PROC: 5A1935Z Respiratory Ventilation, Less than 24 Consecutive Hours (ICD-10-PCS; principal; 2016-12-15)
DX: J69.0 Pneumonitis due to inhalation of food and vomit (principal); A41.9 Sepsis, unspecified organism; K56.609 Unspecified intestinal obstruction, unspecified as to partial versus complete obstruction; J90 Pleural effusion, not elsewhere classified; C78.00 Secondary malignant neoplasm of unspecified lung; R18.8 Other ascites; Z87.891 Personal history of nicotine dependence; C05.1 Malignant neoplasm of soft palate; Z85.42 Personal history of malignant neoplasm of other parts of uterus; Z92.3 Personal history of irradiation; Z93.1 Gastrostomy status; Z93.0 Tracheostomy status; M47.9 Spondylosis, unspecified
CPT/HCPCS: 36415; 71260; 74020; 74177; 80053; 81001; 83605; 85025; 87040; 92610-GN; 93005; 94640; A9270-GY; J1650; J1885; J2270; J2405; J2543; J7030; J7040; J7620; Q9967